=== PATIENT | male | born 1980 | race Hispanic/Latino ===

== ENCOUNTER 2020-09-07 19:05 | Emergency (ER) | payer SELFPAY ==
--- OUTSIDE RECORDS SUMMARY | 2020-09-07 19:08 | XMS REPORT | Clinical Summary ---
:1980 Author Organization [facility] Address [address] [place] [address] Care Team Providers Name Role Phone [facility] Primary Care Provider Allergies No Known Allergies Medications Medication Sig Dispensed Refills Start Date End Date Status traMADol (ULTRAM) 50 Take 50 mg by 0 Active mg tablet mouth every 6 (six) hours as needed for Pain. Active Problems Problem Noted Date Abdominal distension 02/27/2017 Secondary hypertension 02/27/2017 Acute post-operative pain 02/27/2017 Essential hypertension 02/27/2017 Post-procedural fever 02/26/2017 Tobacco use 02/25/2017 Homelessness 02/25/2017 Leukocytosis 02/25/2017 STEMI (ST elevation myocardial infarction) 02/22/2017 S/P CABG x 3 Family History Medical History Relation Name Comments No Known Problem Father Seizures Mother Relation Name Status Comments Father Mother Social History Tobacco Use Types Packs/Day Years Used Date Former Smoker 1 8 Quit: 02/20/20 17 Tobacco Cessation: Ready to Quit: No Alcohol Use Drinks/Week oz/Week Comments No Sex Assigned at Date Recorded Not on file Last Filed Vital Signs Not on file Plan of Treatment Not on file Results Not on fileafter 09/07/2019 Advance Directives For more information, please contact: [phone] Code Status Date Activated Date Inactivated Comments Full Code 02/26/2017 2:00 PM 03/02/2017 9:14 PM This code status was determined by: Patient Full Code 02/22/2017 4:59 AM 02/26/2017 2:00 PM This code status was determined by: Patient Full Code 02/22/2017 4:41 AM 02/22/2017 4:59 AM This code status was determined by: Patient
--- OUTSIDE RECORDS SUMMARY | 2020-09-07 19:08 | XMS REPORT | Continuity of Care Document ---
:1980 Author Organization [facility] Care Team Providers Name Role Phone [facility] Unavailable Un available Problems Problem Status Onset Classification Date Comments Sourc e Date Reported HOSPITAL Active [facility] FOLLWO UP 6 Medical Center Discharge 08/01/2016 [facility] Diagnosis: 6 Medical Abscess, Center dental FACIAL Active [facility] SWELLLING [address] [place] [address] Center Medications Medication Details Route Status Patient Ordering Order Source Instructions Provider Date Acetaminophen 1 tab, Inactive [facility] 325 MG / Route: PO, 016 Medical Hydrocodone Drug Form: Center Bitartrate 5 MG TAB, Dosing Oral Tablet Weight [Aristes 5/325] 84.091, kg, ONCE, STAT, Start date: 07/29/16 5:06:00 SERVICE DESK MANAGER, Stop date: 07/29/16 5:06:00 SERVICE DESK MANAGER Amoxicillin 875 875 mg = 1 Active [place] / Clavulanate tab, PO, 016 Medica l 125 MG Oral BID, X 10 Center Tablet day, # 20 [Augmentin tab, 0 875-mg] Refill(s) chlorhexidine 0.018 gm = [place] gluconate 1.2 15 mL, PO, 016 Medical MG/ML Mouthwash BID, swish Cente r [Peridex] and spit; do not swallow, # 420 mL, 0 Refill(s) Morphine Notes: (Same Inactive [facility] as:MORPhine 016 Medical Sulfate) Center Unasyn Notes: No Longer [facility] Dosing based Active 016 Medical on Center Ampicillin component (Same as: Unasyn) Sodium Chloride 1,000 mL, No Longer [place] 0.154 MEQ/ML 1,000 ml/hr, Active 016 Medica l Injectable Infuse Over: Center Solution 1 hr, Route: IV, 1,000, Drug form: INJ, ONCE, Priority: STAT, Dosing Weight 84.091 kg, Start date: 07/28/16 23:47:00 SERVICE DESK MANAGER, Duration: 1 doses or times, Stop date: 07/28/16 23:47:00 SERVICE DESK MANAGER Zofran Notes: (Same No Longer [facility] as: Zofran) Active 016 Medical Center MEDICATION WASTE Product Size: 4 mg Product Wasted: ___ mg Morphine Notes: (Same No Longer [facility] as:MORPhine Active 016 Medical Sulfate) Center Allergies, Adverse Reactions, Alerts No Known Medication Allergies Immunizations No Data Provided for This Section Results Order Name Results Value Reference Date Interpretation Comments Dori rce Range CHEM PANEL Magnesium Lvl 2.1 1.8 - 2.4 [place] 2015 [facility] CHEM PANEL eGFR 103 [facility] 2015 Comment: The Medical eGFR is Center calculated using the CKD-EPI formula. In most young, healthy individuals the eGFR will be >90 mL/min/1.73m2 . The eGFR declines with age. An eGFR of 60-89 may be normal in some populations, particularly the elderly, for whom the CKD-EPI formula has not been extensively validated. Use of the eGFR is not recommended in the following populations:< br/>
Samanta viduals with unstable creatinine concentration s, including patients and those with serious co-morbid conditions.<b r/>
Patie nts with extremes in muscle mass or diet.

The data above are obtained from the National Kidney Disease Education Program (NKDEP) which additionally recommends that when the eGFR is used in patients with extremes of body mass index for purposes of drug dosing, the eGFR should be multiplied by the estimated BMI. CHEM PANEL Chloride Lvl 99 95 - 109 [place] 2015 [facility] CHEM PANEL CO2 25 24 - 32 [facility] 2015 [facility] CHEM PANEL Calcium Lvl 8.6 8.5 - 10.5 [place] [address] [place] [address] CHEM PANEL BUN 9 7 - [address] CHEM PANEL Creatinine 0.94 0.50 - 1.40 [place] L[place] 2015 [facility] CHEM PANEL Sodium Lvl 137 135 - 145 [facility] 2015 [facility] CHEM PANEL Potassium Lvl 3.1 3.5 - 5.1 2015 [facility] CHEM PANEL Glucose Lvl 131 70 - 99 [facility] 2015 [facility] CHEM PANEL AGAP 16.1 10.0 - 20.0 [place] 2015 [facility] HEMATOLOGY Monocytes 13.5 2.0 - 12.0 [place] 2015 [facility] HEMATOLOGY Segs 68.9 45.0 - 75.0 [place] 2015 [facility] HEMATOLOGY Lymphocytes 15.6 20.0 - 40.0 [place] 2015 [facility] HEMATOLOGY Eosinophils 1.5 0.0 - 4.0 [facility] 2015 [facility] HEMATOLOGY Basophils 0.5 0.0 - 1.0 [place] 2015 [facility] HEMATOLOGY Monocytes # 1.3 0.0 - 0.8 [place] 2015 [facility] HEMATOLOGY Eosinophils # 0.1 0.0 - 0.5 [facility] 2015 [facility] HEMATOLOGY Segs-Bands # 6.8 1.5 - 8.1 2015 [facility] HEMATOLOGY Lymphocytes # 1.5 1.0 - 5.[address] [facility] HEMATOLOGY Basophils # 0.1 0.0 - 0.2 [facility] 2015 [facility] HEMATOLOGY INR 1.03 0.85 - 1.17 [place] 2015 [facility] HEMATOLOGY PT 13.7 12.0 - 14.7 [place] 2015 [facility] HEMATOLOGY PTT 31.5 22.9 - 35.8 [place] 2015 [facility] HEMATOLOGY RDW 13.1 11.5 - 14.5 [place] 2015 [facility] HEMATOLOGY MCHC 36.3 32.0 - 36.0 [facility] 2015 [facility] HEMATOLOGY Platelet 224 133 - 450 [place] 2015 [facility] HEMATOLOGY MPV 6.7 7.4 - 10.4 [facility] 2015 [facility] HEMATOLOGY Hct 39.9 42.0 - 54.0 [place] 2015 [facility] HEMATOLOGY WBC 9.8 3.7 - 10.4 [facility] 2015 [facility] HEMATOLOGY RBC 4.70 4.70 - 6.10 [facility] 2015 [facility] HEMATOLOGY Hgb 14.5 14.0 - 18.[address] HEMATOLOGY MCH 30.8 27.0 - 31.0 07/[address] HEMATOLOGY MCV 84.8 80.0 - 94.[address] Pathology Reports No Data Provided for This Section Diagnostic Reports Report Value Date Source Facial bone w EXAM: CT FACIAL BONES WITH CONTRAST 07/29/2016 [facility] contrast CT DATE: 07/29/2016 Center INDICATION: Pain and swelling COMPARISON: None available TECHNIQUE: Axial post contrast CT image s of the facial bones, with coronal and sagittal reformats. IV contrast: 94 cc Omnipaque DLP: 626 mGy-cm FINDINGS: Periapical lucency surroundi ng the left maxillary lateral incisor is identified. Anterior to this region there is a soft tissue low attenuating collection measuring 1.7 cm in maximum dimension, consiste nt with a small abscess. Adj acent soft tissue swelling and stranding of the fat, consistent with cellulitis is demonstrated. The left platysma muscle is thickened as compared to the right. There are harish ctive lymph nodes in the submandibular region, p redominantly on the left. Periapical lucency is identi fied near the left lateral mandibular incisor. Numerous cavities in the maxillary and mandibular teeth are identified. The parotid and submandibula r glands are unremarkable. The airway is normal. Vascular structures enhance in a normal fashion. IMPRESSION: A small odontogenic abscess in the left maxillary region adjacent to a periapical lucency of the left maxillary lateral incisor. There is cellulitis in the vicinity. Teeth Complete Full EXAM: XR PANOREX 07/28/2016 [facility] dical Mouth DX DATE: 07/28/2016 6:17 PM SERVICE DESK MANAGER Samantha ter INDICATION: Periapical abscess COMPARISON: None TECHNIQUE: A single Panorex view of the jaw. FINDINGS: Evaluation of midline struct ures is limited by tomographic artifact. There is no mandibular fracture. The temporomandibular joints are well aligned. Multiple teeth are absent, i ncluding tooth #1, 2, 4, 15, 16, 17, 20, 29, 31, 32. Multiple dental caries are present. Dental fillings are visualized. There is periapical lucency surrounding the right man dibular first molar and also to a lesser degree subjacent to the posterior second molar of right mandible. Very small periapical lucency is present at the canine of the left maxilla. IMPRESSION: 1. Periapical lucency surro unding the right mandibular first molar and second molar as well as canine of left maxilla which in the appropriate clinical setting may represent dental abscess. 2. Poor dentition with mult iple absent teeth and several dental caries. Recommend dental exam and dental films when feasible. Consultation Notes No Data Provided for This Section Discharge Summaries No Data Provided for This Section History and Physicals No Data Provided for This Section Vital Signs Vital Sign Value Date Comments Source Temperature Oral (F) 98.1 F 07/29/2016 [facility] Heart Rate 82 07/29[facility] Systolic (mm Hg) 140 07/29/2016 [facility] Diastolic (mm Hg) 78 07/29/2016 [facility] Respitory Rate 16 07/29/2016 [facility] Heart Rate 83 07/29/2016 [facility] Systolic (mm Hg) 168 07/29/2016 [facility] Diastolic (mm Hg) 92 07/29/2016 [facility] Height 175.26 cm 07/29/2016 [facility] BMI Calculated 27.38 07/29/2016 [facility] Weight 84.091 07/29/2016 [facility] Heart Rate 87 07/29/2016 [facility] Respitory Rate 18 07/29/2016 [facility] Systolic (mm Hg) 135 07/29/2016 [facility] Diastolic (mm Hg) 78 07/29/2016 [facility] Temperature Oral (F) 98.1 F 07/29/2016 [facility] Encounters Location Location Encounter Encounter Reason Attending ADM DC Stat us Source Details Type Number For Provider Date Date Visit [facility] [id number] Jeremie 07/29 07/29 [facility] Mike /2015 [facility] [id number] Cornell 08/06 09/05 [facility] Carter /2016 [facility] Procedures No Data Provided for This Section Assessment and Plan No Data Provided for This Section Plan of Care No Data Provided for This Section Social History Social History Date Source Social History TypeResponse 07/29/2016 [facility] Smoking Status Never smoker; Exposure to Tobacco Smoke None; Cigarette Smoking Last 365 Days No; Reg Smoking Cessation Counseling No Family History No Data Provided for This Section Advance Directives No Data Provided for This Section Functional Status No Data Provided for This Section
--- OUTSIDE RECORDS SUMMARY | 2020-09-07 19:11 | XMS REPORT | Continuity of Care Document ---
:1980 Author Organization [facility] t Address 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 02-27 Roselyn kes - on on 00:00: Medical 00 [place] Acute Acute Disease Active [facility] post-opera post-opera 02-27 Roselyn kes - tive pain tive pain 00:00: Medi yuko 00 Center Essential Essential Disease Active [facility] hypertensi hypertensi 02-27 Roselyn kes - on on 00:00: Medical 00 [place] Post-proce Post-proce Disease Active [facility]ural [facility]ural [facility]26 [facility] fever fever 00:00: Medical 00 [place] Tobacco Tobacco Disease Active [facility] use use 02-25 [facility] - 00:[facility]: Medical 00 [place] Homelessne Homelessne Disease Active [facility] ss ss 02-25 [facility] - 00:[facility]: Medical 00 Center Leukocytos Leukocytos Disease Active [facility] is is 02-25 [facility] - 00:00: Medical 00 Center STEMI (ST STEMI (ST Disease Active [facility] St elevation elevation 02-22 [place] - myocardial myocardial 00:00: Me dical infarction infarction 00 Ce nter ) ) HOSPITAL Diagnosis Active 2015-082016-08-06 M amna FOLLWO UP 10:35:00 l HOSPITAL 00:00: Oswaldo diaz FOLLWO UP 00 Active 07/31/2016 [facility] FACIAL Diagnosis Active 2015-082016-07-28 Mem oria SWELLLING 09-28 23:51:00 l FACIAL 00:00: [place] SWELLLING 00 Active 07/28/2016 [facility] S/P CABG x S/P CABG x Disease Active [facility] 3 3 [facility] Discharge Problem 2015-082016-08-01 2016-08-01 Memoria Diagnosis: 09-29 04:07:14 04:07:14 l Abscess, 06:00: [place] dental Discharge 00 Diagnosis: Abscess, dental 07/29/2016 08/01/2016 [facility] Allergies, Adverse Reactions, Alerts This patient has no known allergies or adverse reactions. Family History Family Member Diagnosis Comments Start Date Stop Date Source Natural father No Known Problem [facility] Natural mother Seizures [facility] Social History Social Habit Start Date Stop Date Quantity Comments Source Sex Assigned At [facility] Cigarettes smoked 2017-03-22 2017-03-22 [facility] - current (pack per 00:00:00 00:00:00 [facility] day) - Reported Cigarette 2017-03-22 2017-03-22 [facility] - pack-years 00:00:00 00:00:00 [facility] Alcohol intake 2017-03-22 2017-03-22 Current [facility] - 00:00:00 00:00:00 non-drinker of Medical Ce nter alcohol (finding) History of tobacco 2017-02-19 Current smoker Alexi Riojas - use 00:00:00 [facility] Smoking Status Start Date Stop Date Source Former smoker 2017-03-22 00:00:00 2017-03-22 00:00:00 [facility] Social History [facility] Medications Ordered Filled Start Stop Current Ordering Indication Dosage Frequency Signature Comments Components Source Medication Medication Date Date Medication? Clinician (SIG) Name Name traMADol Yes 50mg Take [address] [facility] [address] (ULTRAM) 50 8-21 by mouth Luke s - mg tablet 11:00: every 6 Medic al 56 (six) Center hours as needed for Pain. Acetaminoph 2015-08 No 1 tab, Raudel shakir en 325 MG / 09-29 Route: PO, l Hydrocodone 11:06: Drug Form: [place] Bitartrate 00 TAB, 5 MG Oral Dosing Tablet Weight [[place] 84.091, 5/325] kg, ONCE, STAT, Start date: 07/29/16 5:06:00 HSE COORDINATOR, Stop date: 07/29/16 5:06:00 HSE COORDINATOR Amoxicillin 2015-08 Yes 875 mg = 1 [facility] 875 MG / 09-29 tab, PO, l Clavulanate 10:52: BID, X 10 H ermann 125 MG Oral 00 day, # 20 Tablet tab, 0 [Augmentin Refill(s) 875-mg] chlorhexidi 2015-08 Yes 0.018 gm = Memoria ne - 15 mL, PO, l gluconate 10:52: BID, swish He rmann 1.2 MG/ML 00 and spit; Mouthwash do not [Peridex] swallow, # 420 mL, 0 Refill(s) Morphine 2015-08 Yes Notes: Memoria 2-28 (Same l 10:01: as:MORPhin Reinier 00 e Sulfate) Unasyn 2015-08 No Notes: [facility] 2-28 Dosing l 05:49: based on [place] 00 Ampicillin component (Same as: Unasyn) Sodium 2015-08 No 1,000 mL, Memori a Chloride - 1,000 l 0.154 05:47: ml/hr, [place] MEQ/ML 00 Infuse Injectable Over: 1 Solution hr, Route: IV, 1,000, Drug form: INJ, ONCE, Priority: STAT, Dosing Weight 84.091 kg, Start date: 07/28/16 23:47:00 HSE COORDINATOR, Duration: 1 doses or times, Stop date: 07/28/16 23:47:00 HSE COORDINATOR Zofran 2015-08 No Notes: [facility]oria 2-28 (Same as: l 05:47: Zofran) [place] 00 MEDICATION WASTE Product Size: 4 mg Product Wasted: ___ mg Morphine 2015-08 No Notes: [facility]oria 09-29 (Same l 05:47: as:MORPhin [place] 00 e Sulfate) Vital Signs Vital Name Observation Time Observation Value Comments Source Temperature Oral (F) 2016-07-29 11:16:00 98.1 F [facility] [place] Heart Rate 2016-07-29 11:16:00 [facility] Systolic (mm Hg) 2016-07-29 11:16:00 Raudel rial [place] Diastolic (mm Hg) 2016-07-29 11:16:00 Mem [facility] [place] Respitory Rate 2016-07-29 06:24:00 [facility] [place] Heart Rate 2016-07-29 06:24:00 [facility] [place] Systolic (mm Hg) 2016-07-29 06:24:00 Raudel rial [place] Diastolic (mm Hg) 2016-07-29 06:24:00 Mem orial [place] Height 2016-07-29 00:13:00 175.26 cm [facility] [place] BMI Calculated 2016-07-29 00:13:00 [facility] [place] Weight 2016-07-29 00:13:00 [facility] Heart Rate 2016-07-29 00:13:00 [facility] [place] Respitory Rate 2016-07-29 00:13:00 [facility] [place] Systolic (mm Hg) 2016-07-29 00:13:00 Raudel rial [place] Diastolic (mm Hg) 2016-07-29 00:13:00 Mem orial [place] Temperature Oral (F) 2016-07-29 00:13:00 98.1 F [facility] Procedures This patient has no known procedures. Encounters Start End Encounter Admission Attending Care Care Encounter Source Date/Time Date/Time Type Type Clinicians Facility Department ID 2016-08-06 2016-09-04 Outpatient Carter [facility] [id number] 10:26:00 23:59:00 [facility] 00 Miguel 2016-07-28 2016-07-29 Outpatient Mike [facility] [id number] 675 18:02:00 05:18:00 Jeremie 00 Joanlia Results Test Description Test Time Test Comments Results Result Comments Source MAGNESIUM 2017-03-02 06:15:00 Test Item Value Reference Range Interpretation Comme nts MAGNESIUM (BEAKER) (test code = 627) 2.0 mg/dL 1.6-2.6 BASIC METABOLIC [id number] 06:15:00 Test Item Value Reference Range Interpretation Comments SODIUM (BEAKER) 138 meq/L 136-145 (test code = 381) POTASSIUM (BEAKER) 3.9 meq/L 3.5-5.1 (test code = 379) CHLORIDE (BEAKER) 102 meq/L 98-107 (test code = 382) CO2 (BEAKER) (test 25 meq/L 22-29 code = 355) BLOOD UREA NITROGEN 13 mg/dL 7-21 (BEAKER) (test code = 354) CREATININE (BEAKER) 0.83 mg/dL 0.57-1.25 (test code = 358) GLUCOSE RANDOM 100 mg/dL 70-105 (BEAKER) (test code = 652) CALCIUM (BEAKER) 9.1 mg/dL 8.4-10.2 (test code = 697) EGFR (BEAKER) (test 104 mL/min/1.73 ESTIM ATED GFR IS code = 1092) sq m NOT ACCURATE CREATININE CLEARANCE IN PREDICTING GLOMERULAR FILTRATION RATE . ESTIMATED GFR I S NOT APPLICABLE FOR DIALYSIS PATIEN TS. CBC W/PLT COUNT & AUTO [id number] 05:58:00 Test Item Value Reference Range Interpretation Comments WHITE BLOOD CELL COUNT (BEAKER) 10.9 K/ L 3.5-10.5 H (test code = 775) RED BLOOD CELL COUNT (BEAKER) 4.07 M/ L 4.63-6.08 L (test code = 761) HEMOGLOBIN (BEAKER) (test code = 12.3 GM/DL 13.7-17.5 L 410) HEMATOCRIT (BEAKER) (test code = 35.4 % 40.1-51.0 L 411) MEAN CORPUSCULAR VOLUME (BEAKER) 87.0 fL 79.0-92.2 (test code = 753) MEAN CORPUSCULAR HEMOGLOBIN 30.2 pg 25.7-32.2 (BEAKER) (test code = 751) MEAN CORPUSCULAR HEMOGLOBIN CONC 34.7 GM/DL 32.3-36.5 (BEAKER) (test code = 752) RED CELL DISTRIBUTION WIDTH 13.2 % 11.6-14.4 (BEAKER) (test code = 412) PLATELET COUNT (BEAKER) (test 346 K/CU MM 150-450 code = 756) MEAN PLATELET VOLUME (BEAKER) 9.0 fL 9.4-12.4 L (test code = 754) NUCLEATED RED BLOOD CELLS 0 /100 WBC 0-0 (BEAKER) (test code = 413) NEUTROPHILS RELATIVE PERCENT 62 % (BEAKER) (test code = 429) LYMPHOCYTES RELATIVE PERCENT 20 % (BEAKER) (test code = 430) MONOCYTES RELATIVE PERCENT 12 % (BEAKER) (test code = 431) EOSINOPHILS RELATIVE PERCENT 4 % (BEAKER) (test code = 432) BASOPHILS RELATIVE PERCENT 1 % (BEAKER) (test code = 437) NEUTROPHILS ABSOLUTE COUNT 6.75 K/ L 1.78-5.38 H (BEAKER) (test code = 670) LYMPHOCYTES ABSOLUTE COUNT 2.13 K/ L 1.32-3.57 (BEAKER) (test code = 414) MONOCYTES ABSOLUTE COUNT (BEAKER) 1.32 K/ L 0.30-0.82 H (test code = 415) EOSINOPHILS ABSOLUTE COUNT 0.48 K/ L 0.04-0.54 (BEAKER) (test code = 416) BASOPHILS ABSOLUTE COUNT (BEAKER) 0.08 K/ L 0.01-0.08 (test code = 417) IMMATURE GRANULOCYTES-RELATIVE 1 % 0-1 PERCENT (BEAKER) (test code = 2801) CBC W/PLT COUNT & AUTO [id number] 07:41:00 Test Item Value Reference Range Interpretation Comments WHITE BLOOD CELL COUNT (BEAKER) 12.8 K/ L 3.5-10.5 H (test code = 775) RED BLOOD CELL COUNT (BEAKER) 3.65 M/ L 4.63-6.08 L (test code = 761) HEMOGLOBIN (BEAKER) (test code = 11.0 GM/DL 13.7-17.5 L 410) HEMATOCRIT (BEAKER) (test code = 32.2 % 40.1-51.0 L 411) MEAN CORPUSCULAR VOLUME (BEAKER) 88.2 fL 79.0-92.2 (test code = 753) MEAN CORPUSCULAR HEMOGLOBIN 30.1 pg 25.7-32.2 (BEAKER) (test code = 751) MEAN CORPUSCULAR HEMOGLOBIN CONC 34.2 GM/DL 32.3-36.5 (BEAKER) (test code = 752) RED CELL DISTRIBUTION WIDTH 13.2 % 11.6-14.4 (BEAKER) (test code = 412) PLATELET COUNT (BEAKER) (test 230 K/CU MM 150-450 code = 756) MEAN PLATELET VOLUME (BEAKER) 9.6 fL 9.4-12.4 (test code = 754) NUCLEATED RED BLOOD CELLS 0 /100 WBC 0-0 (BEAKER) (test code = 413) NEUTROPHILS RELATIVE PERCENT 69 % (BEAKER) (test code = 429) LYMPHOCYTES RELATIVE PERCENT 15 % (BEAKER) (test code = 430) MONOCYTES RELATIVE PERCENT 13 % (BEAKER) (test code = 431) EOSINOPHILS RELATIVE PERCENT 2 % (BEAKER) (test code = 432) BASOPHILS RELATIVE PERCENT 0 % (BEAKER) (test code = 437) NEUTROPHILS ABSOLUTE COUNT 8.81 K/ L 1.78-5.38 H (BEAKER) (test code = 670) LYMPHOCYTES ABSOLUTE COUNT 1.95 K/ L 1.32-3.57 (BEAKER) (test code = 414) MONOCYTES ABSOLUTE COUNT (BEAKER) 1.68 K/ L 0.30-0.82 H (test code = 415) EOSINOPHILS ABSOLUTE COUNT 0.30 K/ L 0.04-0.54 (BEAKER) (test code = 416) BASOPHILS ABSOLUTE COUNT (BEAKER) 0.04 K/ L 0.01-0.08 (test code = 417) IMMATURE GRANULOCYTES-RELATIVE 0 % 0-1 PERCENT (BEAKER) (test code = 2801) [id number] 07:35:00 Test Item Value Reference Range Interpretation Comments MAGNESIUM (BEAKER) (test code = 1.8 mg/dL 1.6-2.6 627) BASIC METABOLIC [id number] 07:35:00 Test Item Value Reference Range Interpretation Comments SODIUM (BEAKER) 137 meq/L 136-145 (test code = 381) POTASSIUM (BEAKER) 4.1 meq/L 3.5-5.1 (test code = 379) CHLORIDE (BEAKER) 104 meq/L 98-107 (test code = 382) CO2 (BEAKER) (test 26 meq/L 22-29 code = 355) BLOOD UREA NITROGEN 11 mg/dL 7-21 (BEAKER) (test code = 354) CREATININE (BEAKER) 0.76 mg/dL 0.57-1.25 (test code = 358) GLUCOSE RANDOM 104 mg/dL 70-105 (BEAKER) (test code = 652) CALCIUM (BEAKER) 8.7 mg/dL 8.4-10.2 (test code = 697) EGFR (BEAKER) (test 115 mL/min/1.73 ESTIM ATED GFR IS code = 1092) sq m NOT ACCURATE CREATININE CLEARANCE IN PREDICTING GLOMERULAR FILTRATION RATE . ESTIMATED GFR I S NOT APPLICABLE FOR DIALYSIS PATIEN TS. PLATELET AGGREGATION: FUNCTION [id number] 09:16:00 Test Item Value Reference Range Interpretation Comments WEAK ADP 57 % 60-91 L RESULT(BEAKER) (test code = 2135) PLATELET FUNCTION 50-59% indicates mild SCREEN INTERP platelet dysfunction (BEAKER) (test code = 2173) [id number] Jia Reynoso MD (BEAKER) (test code = (electronic signature) 0212) PLATELET COUNT AGG 301 K/CU MM 150-450 (BEAKER) (test code = 9650) CBC W/PLT COUNT & AUTO [id number] 08:06:00 Test Item Value Reference Range Interpretation Comments WHITE BLOOD CELL COUNT (BEAKER) 16.7 K/ L 3.5-10.5 H (test code = 775) RED BLOOD CELL COUNT (BEAKER) 3.80 M/ L 4.63-6.08 L (test code = 761) HEMOGLOBIN (BEAKER) (test code = 11.5 GM/DL 13.7-17.5 L 410) HEMATOCRIT (BEAKER) (test code = 33.1 % 40.1-51.0 L 411) MEAN CORPUSCULAR VOLUME (BEAKER) 87.1 fL 79.0-92.2 (test code = 753) MEAN CORPUSCULAR HEMOGLOBIN 30.3 pg 25.7-32.2 (BEAKER) (test code = 751) MEAN CORPUSCULAR HEMOGLOBIN CONC 34.7 GM/DL 32.3-36.5 (BEAKER) (test code = 752) RED CELL DISTRIBUTION WIDTH 13.2 % 11.6-14.4 (BEAKER) (test code = 412) PLATELET COUNT (BEAKER) (test 222 K/CU MM 150-450 code = 756) MEAN PLATELET VOLUME (BEAKER) 9.2 fL 9.4-12.4 L (test code = 754) NUCLEATED RED BLOOD CELLS 0 /100 WBC 0-0 (BEAKER) (test code = 413) NEUTROPHILS RELATIVE PERCENT 76 % (BEAKER) (test code = 429) LYMPHOCYTES RELATIVE PERCENT 9 % (BEAKER) (test code = 430) MONOCYTES RELATIVE PERCENT 13 % (BEAKER) (test code = 431) EOSINOPHILS RELATIVE PERCENT 1 % (BEAKER) (test code = 432) BASOPHILS RELATIVE PERCENT 0 % (BEAKER) (test code = 437) NEUTROPHILS ABSOLUTE COUNT 12.71 K/ L 1.78-5.38 H (BEAKER) (test code = 670) LYMPHOCYTES ABSOLUTE COUNT 1.46 K/ L 1.32-3.57 (BEAKER) (test code = 414) MONOCYTES ABSOLUTE COUNT (BEAKER) 2.10 K/ L 0.30-0.82 H (test code = 415) EOSINOPHILS ABSOLUTE COUNT 0.15 K/ L 0.04-0.54 (BEAKER) (test code = 416) BASOPHILS ABSOLUTE COUNT (BEAKER) 0.04 K/ L 0.01-0.08 (test code = 417) IMMATURE GRANULOCYTES-RELATIVE 1 % 0-1 PERCENT (BEAKER) (test code = 2801) [id number] 07:36:00 Test Item Value Reference Range Interpretation Comments MAGNESIUM (BEAKER) (test code = 1.9 mg/dL 1.6-2.6 627) BASIC METABOLIC [id number] 07:36:00 Test Item Value Reference Range Interpretation Comments SODIUM (BEAKER) 133 meq/L 136-145 L (test code = 381) POTASSIUM (BEAKER) 4.1 meq/L 3.5-5.1 (test code = 379) CHLORIDE (BEAKER) 100 meq/L 98-107 (test code = 382) CO2 (BEAKER) (test 25 meq/L 22-29 code = 355) BLOOD UREA NITROGEN 12 mg/dL 7-21 (BEAKER) (test code = 354) CREATININE (BEAKER) 0.80 mg/dL 0.57-1.25 (test code = 358) GLUCOSE RANDOM 107 mg/dL 70-105 H (BEAKER) (test code = 652) CALCIUM (BEAKER) 8.7 mg/dL 8.4-10.2 (test code = 697) EGFR (BEAKER) (test 108 mL/min/1.73 ESTIM ATED GFR IS code = 1092) sq m NOT ACCURATE CREATININE CLEARANCE IN PREDICTING GLOMERULAR FILTRATION RATE . ESTIMATED GFR I S NOT APPLICABLE FOR DIALYSIS PATIEN TS. CBC W/PLT COUNT & AUTO [id number] 05:47:00 Test Item Value Reference Range Interpretation Comments WHITE BLOOD CELL COUNT (BEAKER) 10.9 K/ L 3.5-10.5 H (test code = 775) RED BLOOD CELL COUNT (BEAKER) 4.00 M/ L 4.63-6.08 L (test code = 761) HEMOGLOBIN (BEAKER) (test code = 12.1 GM/DL 13.7-17.5 L 410) HEMATOCRIT (BEAKER) (test code = 35.1 % 40.1-51.0 L 411) MEAN CORPUSCULAR VOLUME (BEAKER) 87.8 fL 79.0-92.2 (test code = 753) MEAN CORPUSCULAR HEMOGLOBIN 30.3 pg 25.7-32.2 (BEAKER) (test code = 751) MEAN CORPUSCULAR HEMOGLOBIN CONC 34.5 GM/DL 32.3-36.5 (BEAKER) (test code = 752) RED CELL DISTRIBUTION WIDTH 13.3 % 11.6-14.4 (BEAKER) (test code = 412) PLATELET COUNT (BEAKER) (test 205 K/CU MM 150-450 code = 756) MEAN PLATELET VOLUME (BEAKER) 8.9 fL 9.4-12.4 L (test code = 754) NUCLEATED RED BLOOD CELLS 0 /100 WBC 0-0 (BEAKER) (test code = 413) NEUTROPHILS RELATIVE PERCENT 78 % (BEAKER) (test code = 429) LYMPHOCYTES RELATIVE PERCENT 8 % (BEAKER) (test code = 430) MONOCYTES RELATIVE PERCENT 12 % (BEAKER) (test code = 431) EOSINOPHILS RELATIVE PERCENT 1 % (BEAKER) (test code = 432) BASOPHILS RELATIVE PERCENT 0 % (BEAKER) (test code = 437) NEUTROPHILS ABSOLUTE COUNT 8.46 K/ L 1.78-5.38 H (BEAKER) (test code = 670) LYMPHOCYTES ABSOLUTE COUNT 0.91 K/ L 1.32-3.57 L (BEAKER) (test code = 414) MONOCYTES ABSOLUTE COUNT (BEAKER) 1.35 K/ L 0.30-0.82 H (test code = 415) EOSINOPHILS ABSOLUTE COUNT 0.05 K/ L 0.04-0.54 (BEAKER) (test code = 416) BASOPHILS ABSOLUTE COUNT (BEAKER) 0.04 K/ L 0.01-0.08 (test code = 417) IMMATURE GRANULOCYTES-RELATIVE 1 % 0-1 PERCENT (BEAKER) (test code = 2801) [id number] 05:01:00 Test Item Value Reference Range Interpretation Comments MAGNESIUM (BEAKER) (test code = 2.0 mg/dL 1.6-2.6 627) BASIC METABOLIC [id number] 05:01:00 Test Item Value Reference Range Interpretation Comments SODIUM (BEAKER) 134 meq/L 136-145 L (test code = 381) POTASSIUM (BEAKER) 4.3 meq/L 3.5-5.1 (test code = 379) CHLORIDE (BEAKER) 103 meq/L 98-107 (test code = 382) CO2 (BEAKER) (test 23 meq/L 22-29 code = 355) BLOOD UREA NITROGEN 11 mg/dL 7-21 (BEAKER) (test code = 354) CREATININE (BEAKER) 0.87 mg/dL 0.57-1.25 (test code = 358) GLUCOSE RANDOM 128 mg/dL 70-105 H (BEAKER) (test code = 652) CALCIUM (BEAKER) 8.5 mg/dL 8.4-10.2 (test code = 697) EGFR (BEAKER) (test 98 mL/min/1.73 ESTIMA BONNIE GFR IS code = 1092) sq m NOT ACCURATE CREATININE CLEARANCE IN PREDICTING GLOMERULAR FILTRATION RATE . ESTIMATED GFR I S NOT APPLICABLE FOR DIALYSIS PATIEN TS. OXYGEN SATURATION, [id number] 04:41:00 Test Item Value Reference Range Interpretation Comments O2 SATURATION (MEASURED) (BEAKER) 62.3 % (test code = 1455) CALCIUM, [id number] 04:40:00 Test Item Value Reference Range Interpretation Comments CALCIUM IONIZED (BEAKER) (test 1.14 mmol/L 1.12-1.27 code = 698) PH, BLOOD (BEAKER) (test code = 7.43 1810) POCT-GLUCOSE [id number] 04:27:00 Test Item Value Reference Range Interpretation Comments POC-GLUCOSE METER 130 mg/dL 70-110 H TESTED AT [facility] 6720 (BEAKER) (test code = AYAH NAYLOR 1538) 106[address] [id number] 20:09:00 Test Item Value Reference Range Interpretation Comments POTASSIUM (BEAKER) (test code = 4.7 meq/L 3.5-5.1 379) Check Serum Potassium level 2 hours after oral potassium replacement completed or 30 min after intravenous potassium replacement.[id number] 20:09:00 Test Item Value Reference Range Interpretation Comments MAGNESIUM (BEAKER) (test code = 2.3 mg/dL 1.6-2.6 627) Check Serum Potassium level 2 hours after oral potassium replacement completed or 30 min after intravenous potassium replacement.POTASSIUM-STAT [id number] 17:30:00 Test Item Value Reference Range Interpretation Comments POTASSIUM (BEAKER) (test code = 4.0 meq/L 3.6-5.5 379) GLUCOSE-STAT [id number] 17:30:00 Test Item Value Reference Range Interpretation Comments GLUCOSE RANDOM (BEAKER) (test code 114 mg/dL 70-110 H = 652) BLOOD GAS, [id number] 17:30:00 Test Item Value Reference Range Interpretation Comments PH ARTERIAL (BEAKER) (test code = 7.34 7.35-7.45 L 383) PCO2 ARTERIAL (BEAKER) (test code 44 mmHg 35-45 = 384) PO2 ARTERIAL (BEAKER) (test code 196 mmHg 80-90 H = 385) O2 SATURATION ARTERIAL (BEAKER) 99.3 % 96.0-97.0 H (test code = 386) HCO3 ARTERIAL (BEAKER) (test code 23 mmol/L 21-29 = 388) BASE EXCESS ARTERIAL (BEAKER) -2.9 mmol/L -2.0-3.0 L (test code = 387) PATIENT TEMPERATURE (BEAKER) 37.4 C (test code = 1818) FIO2 (BEAKER) (test code = 1819) 60.0 % CBC W/PLT COUNT & AUTO [id number] 16:11:00 Test Item Value Reference Range Interpretation Comments WHITE BLOOD CELL COUNT (BEAKER) 15.8 K/ L 3.5-10.5 H (test code = 775) RED BLOOD CELL COUNT (BEAKER) 3.96 M/ L 4.63-6.08 L (test code = 761) HEMOGLOBIN (BEAKER) (test code = 12.1 GM/DL 13.7-17.5 L 410) HEMATOCRIT (BEAKER) (test code = 34.5 % 40.1-51.0 L 411) MEAN CORPUSCULAR VOLUME (BEAKER) 87.1 fL 79.0-92.2 (test code = 753) MEAN CORPUSCULAR HEMOGLOBIN 30.6 pg 25.7-32.2 (BEAKER) (test code = 751) MEAN CORPUSCULAR HEMOGLOBIN CONC 35.1 GM/DL 32.3-36.5 (BEAKER) (test code = 752) RED CELL DISTRIBUTION WIDTH 13.2 % 11.6-14.4 (BEAKER) (test code = 412) PLATELET COUNT (BEAKER) (test 211 K/CU MM 150-450 code = 756) MEAN PLATELET VOLUME (BEAKER) 8.8 fL 9.4-12.4 L (test code = 754) NUCLEATED RED BLOOD CELLS 0 /100 WBC 0-0 (BEAKER) (test code = 413) NEUTROPHILS RELATIVE PERCENT 69 % (BEAKER) (test code = 429) LYMPHOCYTES RELATIVE PERCENT 17 % (BEAKER) (test code = 430) MONOCYTES RELATIVE PERCENT 10 % (BEAKER) (test code = 431) EOSINOPHILS RELATIVE PERCENT 3 % (BEAKER) (test code = 432) BASOPHILS RELATIVE PERCENT 0 % (BEAKER) (test code = 437) NEUTROPHILS ABSOLUTE COUNT 10.85 K/ L 1.78-5.38 H (BEAKER) (test code = 670) LYMPHOCYTES ABSOLUTE COUNT 2.67 K/ L 1.32-3.57 (BEAKER) (test code = 414) MONOCYTES ABSOLUTE COUNT (BEAKER) 1.60 K/ L 0.30-0.82 H (test code = 415) EOSINOPHILS ABSOLUTE COUNT 0.42 K/ L 0.04-0.54 (BEAKER) (test code = 416) BASOPHILS ABSOLUTE COUNT (BEAKER) 0.06 K/ L 0.01-0.08 (test code = 417) IMMATURE GRANULOCYTES-RELATIVE 1 % 0-1 PERCENT (BEAKER) (test code = 2801) [id number] 16:03:00 Test Item Value Reference Range Interpretation Comments FIBRINOGEN LEVEL (BEAKER) (test 214 mg/dl 225-434 L code = 658) LACTATE DEHYDROGENASE (LDH)[id number] 15:20:00 Test Item Value Reference Range Interpretation Comments LACTATE DEHYDROGENASE 474 U/L 125-220 H Specim en slightly (BEAKER) (test code = hemoly zed 635) BASIC METABOLIC [id number] 15:20:00 Test Item Value Reference Range Interpretation Comments SODIUM (BEAKER) 142 meq/L 136-145 (test code = 381) POTASSIUM (BEAKER) 4.2 meq/L 3.5-5.1 Specimen slightly (test code = 379) hemolyzed CHLORIDE (BEAKER) 112 meq/L 98-107 H (test code = 382) CO2 (BEAKER) (test 23 meq/L 22-29 code = 355) BLOOD UREA NITROGEN 11 mg/dL 7-21 (BEAKER) (test code = 354) CREATININE (BEAKER) 0.92 mg/dL 0.57-1.25 Specimen slightly (test code = 358) hemolyzed GLUCOSE RANDOM 107 mg/dL 70-105 H (BEAKER) (test code = 652) CALCIUM (BEAKER) 7.9 mg/dL 8.4-10.2 L (test code = 697) EGFR (BEAKER) (test 92 mL/min/1.73 ESTIMA BONNIE GFR IS code = 1092) sq m NOT ACCURATE CREATININE CLEARANCE IN PREDICTING GLOMERULAR FILTRATION RATE . ESTIMATED GFR I S NOT APPLICABLE FOR DIALYSIS PATIEN TS. [id number] 15:17:00 Test Item Value Reference Range Interpretation Comments MAGNESIUM (BEAKER) 1.8 mg/dL 1.6-2.6 Specimen slightly (test code = 627) hemolyzed [id number] 15:17:00 Test Item Value Reference Range Interpretation Comments PHOSPHORUS (BEAKER) 3.0 mg/dL 2.3-4.7 Specimen slightly (test code = 604) hemolyzed HEPATIC FUNCTION [id number] 15:17:00 Test Item Value Reference Range Interpretation Comments TOTAL PROTEIN (BEAKER) 5.9 gm/dL 6.0-8.3 L Speci men slightly (test code = 770) hemolyzed ALBUMIN (BEAKER) (test 3.9 g/dL 3.5-5.0 Speci men slightly code = 1145) hemolyzed BILIRUBIN TOTAL 0.6 mg/dL 0.2-1.2 Specimen sli ghtly (BEAKER) (test code = hemoly zed 377) BILIRUBIN DIRECT 0.2 mg/dL 0.1-0.5 Specimen sl ightly (BEAKER) (test code = hemoly zed 706) ALKALINE PHOSPHATASE 49 U/L 40-150 (BEAKER) (test code = 346) AST (SGOT) (BEAKER) 67 U/L 5-34 H Specimen slightly (test code = 353) hemolyzed ALT (SGPT) (BEAKER) 64 U/L 6-55 H Specimen slightly (test code = 347) hemolyzed LACTIC ACID, ARTERIAL, WHOLE [id number] 15:14:00 Test Item Value Reference Range Interpretation Comments LACTATE BLOOD 2.2 mmol/L 0.5-2.2 Specimen sligh tly ARTERIAL (2) (BEAKER) hemoly zed (test code = 2874) Effective 12/04/2015: Units/Reference Range ChangeNew: 0.5-2.2 mmol/L Previous: 5-20 mg/[id number] 15:10:00 Test Item Value Reference Range Interpretation Comments PARTIAL THROMBOPLASTIN TIME 28.8 seconds 22.5-36.0 (BEAKER) (test code = 760) PROTHROMBIN [id number] 15:09:00 Test Item Value Reference Range Interpretation Comments PROTIME (BEAKER) (test code = 16.3 seconds 11.7-14.7 H 759) INR (BEAKER) (test code = 370) 1.3 <=5.9 RECOMMENDED COUMADIN/WARFARIN INR THERAPY RANGESSTANDARD DOSE: 2.0 - 3.0 Includes: PROPHYLAXIS forvenous thrombosis, systemic embolization; TREATMENT for venous thrombosis and/or pulmonary embolus.HIGH RISK: Target INR is 2.5-3.5 for patients with mechanical heart valves.GLUCOSE-STAT [id number] 14:52:00 Test Item Value Reference Range Interpretation Comments GLUCOSE RANDOM (BEAKER) (test code 105 mg/dL 70-110 = 652) SODIUM NA-STAT [id number] 14:52:00 Test Item Value Reference Range Interpretation Comments SODIUM (BEAKER) (test code = 381) 139 meq/L 135-148 POTASSIUM-STAT [id number] 14:52:00 Test Item Value Reference Range Interpretation Comments POTASSIUM (BEAKER) (test code = 4.0 meq/L 3.6-5.5 379) BLOOD GAS, [id number] 14:52:00 Test Item Value Reference Range Interpretation Comments PH ARTERIAL (BEAKER) (test code = 7.39 7.35-7.45 383) PCO2 ARTERIAL (BEAKER) (test code 39 mmHg 35-45 = 384) PO2 ARTERIAL (BEAKER) (test code 155 mmHg 80-90 H = 385) O2 SATURATION ARTERIAL (BEAKER) 99.0 % 96.0-97.0 H (test code = 386) HCO3 ARTERIAL (BEAKER) (test code 23 mmol/L 21-29 = 388) BASE EXCESS ARTERIAL (BEAKER) -1.9 mmol/L -2.0-3.0 (test code = 387) PATIENT TEMPERATURE (BEAKER) 35.5 C (test code = 1818) FIO2 (BEAKER) (test code = 1819) 60.0 % HEMOGLOBIN-STAT [id number] 14:52:00 Test Item Value Reference Range Interpretation Comments HEMOGLOBIN (BEAKER) (test code = 12.2 g/dL 13.0-16.8 L 410) HGB/HCT (H&H) - STAT [id number] 14:52:00 Test Item Value Reference Range Interpretation Comments HEMOGLOBIN (BEAKER) (test code = 12.2 GM/DL 13.0-16.8 L 410) HEMATOCRIT (BEAKER) (test code = 36.0 % 40.0-50.0 L 411) CALCIUM, [id number] 14:52:00 Test Item Value Reference Range Interpretation Comments CALCIUM IONIZED (BEAKER) (test 1.09 mmol/L 1.12-1.27 L code = 698) PH, BLOOD (BEAKER) (test code = 7.39 1810) OXYGEN SATURATION, [id number] 14:50:00 Test Item Value Reference Range Interpretation Comments O2 SATURATION (MEASURED) (BEAKER) 80.0 % (test code = 1455) [id number] 14:12:00 Test Item Value Reference Range Interpretation Comments ACTIVATED CLOTTING TIME 109 sec TEST ED AT [place] [address] ([facility]) (test code = [place] [address]) [id number] 14:12:00 Test Item Value Reference Range Interpretation Comments ACTIVATED CLOTTING TIME 400 sec TEST ED AT [place] [address] ([facility]) (test code = [place] [address]) [id number] 14:12:00 Test Item Value Reference Range Interpretation Comments ACTIVATED CLOTTING TIME 450 sec TEST ED AT [place] [address] ([facility]) (test code = [place] [address]) [address] [id number] 14:12:00 Test Item Value Reference Range Interpretation Comments ACTIVATED CLOTTING TIME 455 sec TEST ED AT [place] [address] ([facility]) (test code = [place] [address]) [address] [id number] 14:11:00 Test Item Value Reference Range Interpretation Comments ACTIVATED CLOTTING TIME 466 sec TEST ED AT [place] [address] ([facility]) (test code = [place] [address]) [address] [id number] 14:11:00 Test Item Value Reference Range Interpretation Comments ACTIVATED CLOTTING TIME 422 sec TEST ED AT [place] [address] ([facility]) (test code = [place] [address]) [id number] 14:11:00 Test Item Value Reference Range Interpretation Comments ACTIVATED CLOTTING TIME 373 sec TEST ED AT [place] [address] ([facility]) (test code = [place] [address]) [id number] BLOOD GAS, [id number] 12:55:00 Test Item Value Reference Range Interpretation Comments PH ARTERIAL (BEAKER) (test code = 7.35 7.35-7.45 383) PCO2 ARTERIAL (BEAKER) (test code 39 mmHg 35-45 = 384) PO2 ARTERIAL (BEAKER) (test code 184 mmHg 80-90 H = 385) O2 SATURATION ARTERIAL (BEAKER) 99.2 % 96.0-97.0 H (test code = 386) HCO3 ARTERIAL (BEAKER) (test code 21 mmol/L 21-29 = 388) BASE EXCESS ARTERIAL (BEAKER) -4.3 mmol/L -2.0-3.0 L (test code = 387) PATIENT TEMPERATURE (BEAKER) 35.8 C (test code = 1818) FIO2 (BEAKER) (test code = 1819) 95.0 % GLUCOSE-STAT [id number] 12:55:00 Test Item Value Reference Range Interpretation Comments GLUCOSE RANDOM (BEAKER) (test code 186 mg/dL 70-110 H = 652) HGB/HCT (H&H) - STAT [id number] 12:55:00 Test Item Value Reference Range Interpretation Comments HEMOGLOBIN (BEAKER) (test code = 9.5 g/dL 13.0-16.8 L 410) HEMATOCRIT (BEAKER) (test code = 28.0 % 40.0-50.0 L 411) CALCIUM, [id number] 12:55:00 Test Item Value Reference Range Interpretation Comments CALCIUM IONIZED (BEAKER) (test 1.02 mmol/L 1.12-1.27 L code = 698) PH, BLOOD (BEAKER) (test code = 7.34 1810) SODIUM NA-STAT [id number] 12:54:00 Test Item Value Reference Range Interpretation Comments SODIUM (BEAKER) (test code = 381) 138 meq/L 135-148 POTASSIUM-STAT [id number] 12:54:00 Test Item Value Reference Range Interpretation Comments POTASSIUM (BEAKER) (test code = 4.5 meq/L 3.6-5.5 379) BLOOD GAS, [id number] 12:28:00 Test Item Value Reference Range Interpretation Comments PH ARTERIAL (BEAKER) (test code = 7.41 7.35-7.45 383) PCO2 ARTERIAL (BEAKER) (test code 33 mmHg 35-45 L = 384) PO2 ARTERIAL (BEAKER) (test code 195 mmHg 80-90 H = 385) O2 SATURATION ARTERIAL (BEAKER) 99.4 % 96.0-97.0 H (test code = 386) HCO3 ARTERIAL (BEAKER) (test code 21 mmol/L 21-29 = 388) BASE EXCESS ARTERIAL (BEAKER) -3.9 mmol/L -2.0-3.0 L (test code = 387) PATIENT TEMPERATURE (BEAKER) 34.7 C (test code = 1818) FIO2 (BEAKER) (test code = 1819) 70.0 % POTASSIUM-STAT [id number] 12:28:00 Test Item Value Reference Range Interpretation Comments POTASSIUM (BEAKER) (test code = 5.8 meq/L 3.6-5.5 H 379) GLUCOSE-STAT [id number] 12:28:00 Test Item Value Reference Range Interpretation Comments GLUCOSE RANDOM (BEAKER) (test code 217 mg/dL 70-110 H = 652) HGB/HCT (H&H) - STAT [id number] 12:28:00 Test Item Value Reference Range Interpretation Comments HEMOGLOBIN (BEAKER) (test code = 8.9 g/dL 13.0-16.8 L 410) HEMATOCRIT (BEAKER) (test code = 26.0 % 40.0-50.0 L 411) SODIUM NA-STAT [id number] 12:27:00 Test Item Value Reference Range Interpretation Comments SODIUM (BEAKER) (test code = 381) 135 meq/L 135-148 POTASSIUM-STAT [id number] 11:58:00 Test Item Value Reference Range Interpretation Comments POTASSIUM (BEAKER) (test code = 7.2 meq/L 3.6-5.5 HH 379) BLOOD GAS, [id number] 11:58:00 Test Item Value Reference Range Interpretation Comments PH ARTERIAL (BEAKER) (test code = 7.39 7.35-7.45 383) PCO2 ARTERIAL (BEAKER) (test code 41 mmHg 35-45 = 384) PO2 ARTERIAL (BEAKER) (test code 226 mmHg 80-90 H = 385) O2 SATURATION ARTERIAL (BEAKER) 99.5 % 96.0-97.0 H (test code = 386) HCO3 ARTERIAL (BEAKER) (test code 25 mmol/L 21-29 = 388) BASE EXCESS ARTERIAL (BEAKER) -0.7 mmol/L -2.0-3.0 (test code = 387) PATIENT TEMPERATURE (BEAKER) 34.2 C (test code = 1818) FIO2 (BEAKER) (test code = 1819) 60.0 % SODIUM NA-STAT [id number] 11:58:00 Test Item Value Reference Range Interpretation Comments SODIUM (BEAKER) (test code = 381) 132 meq/L 135-148 L GLUCOSE-STAT [id number] 11:58:00 Test Item Value Reference Range Interpretation Comments GLUCOSE RANDOM (BEAKER) (test code 259 mg/dL 70-110 H = 652) HGB/HCT (H&H) - STAT [id number] 11:58:00 Test Item Value Reference Range Interpretation Comments HEMOGLOBIN (BEAKER) (test code = 9.9 g/dL 13.0-16.8 L 410) HEMATOCRIT (BEAKER) (test code = 29.0 % 40.0-50.0 L 411) POTASSIUM-STAT [id number] 11:26:00 Test Item Value Reference Range Interpretation Comments POTASSIUM (BEAKER) 6.9 meq/L 3.6-5.5 HH Sample is not (test code = 379) hemolyzed. BLOOD GAS, [id number] 11:25:00 Test Item Value Reference Range Interpretation Comments PH ARTERIAL (BEAKER) (test code = 7.37 7.35-7.45 383) PCO2 ARTERIAL (BEAKER) (test code 36 mmHg 35-45 = 384) PO2 ARTERIAL (BEAKER) (test code 228 mmHg 80-90 H = 385) O2 SATURATION ARTERIAL (BEAKER) 99.5 % 96.0-97.0 H (test code = 386) HCO3 ARTERIAL (BEAKER) (test code 21 mmol/L 21-29 = 388) BASE EXCESS ARTERIAL (BEAKER) -5.0 mmol/L -2.0-3.0 L (test code = 387) PATIENT TEMPERATURE (BEAKER) 31.9 C (test code = 1818) FIO2 (BEAKER) (test code = 1819) 60.0 % SODIUM NA-STAT [id number] 11:25:00 Test Item Value Reference Range Interpretation Comments SODIUM (BEAKER) (test code = 381) 133 meq/L 135-148 L GLUCOSE-STAT [id number] 11:25:00 Test Item Value Reference Range Interpretation Comments GLUCOSE RANDOM (BEAKER) (test code 231 mg/dL 70-110 H = 652) HGB/HCT (H&H) - STAT [id number] 11:25:00 Test Item Value Reference Range Interpretation Comments HEMOGLOBIN (BEAKER) (test code = 10.6 g/dL 13.0-16.8 L 410) HEMATOCRIT (BEAKER) (test code = 31.0 % 40.0-50.0 L 411) HGB/HCT (H&H) - STAT [id number] 10:57:00 Test Item Value Reference Range Interpretation Comments HEMOGLOBIN (BEAKER) (test code = 10.2 g/dL 13.0-16.8 L 410) HEMATOCRIT (BEAKER) (test code = 30.0 % 40.0-50.0 L 411) POTASSIUM-STAT [id number] 10:55:00 Test Item Value Reference Range Interpretation Comments POTASSIUM (BEAKER) (test code = 4.3 meq/L 3.6-5.5 379) BLOOD GAS, [id number] 10:55:00 Test Item Value Reference Range Interpretation Comments PH ARTERIAL (BEAKER) (test code = 7.26 7.35-7.45 L 383) PCO2 ARTERIAL (BEAKER) (test code 44 mmHg 35-45 = 384) PO2 ARTERIAL (BEAKER) (test code 336 mmHg 80-90 H = 385) O2 SATURATION ARTERIAL (BEAKER) 99.7 % 96.0-97.0 H (test code = 386) HCO3 ARTERIAL (BEAKER) (test code 20 mmol/L 21-29 L = 388) BASE EXCESS ARTERIAL (BEAKER) -8.0 mmol/L -2.0-3.0 L (test code = 387) PATIENT TEMPERATURE (BEAKER) 33.8 C (test code = 1818) FIO2 (BEAKER) (test code = 1819) 80.0 % SODIUM NA-STAT [id number] 10:55:00 Test Item Value Reference Range Interpretation Comments SODIUM (BEAKER) (test code = 381) 129 meq/L 135-148 L GLUCOSE-STAT [id number] 10:55:00 Test Item Value Reference Range Interpretation Comments GLUCOSE RANDOM (BEAKER) (test code 147 mg/dL 70-110 H = 652) SODIUM NA-STAT [id number] 08:58:00 Test Item Value Reference Range Interpretation Comments SODIUM (BEAKER) (test code = 381) 139 meq/L 135-148 POTASSIUM-STAT [id number] 08:58:00 Test Item Value Reference Range Interpretation Comments POTASSIUM (BEAKER) (test code = 4.1 meq/L 3.6-5.5 379) HGB/HCT (H&H) - STAT [id number] 08:58:00 Test Item Value Reference Range Interpretation Comments HEMOGLOBIN (BEAKER) (test code = 14.6 g/dL 13.0-16.8 410) HEMATOCRIT (BEAKER) (test code = 43.0 % 40.0-50.0 411) BLOOD GAS, [id number] 08:58:00 Test Item Value Reference Range Interpretation Comments PH ARTERIAL (BEAKER) (test code = 7.38 7.35-7.45 383) PCO2 ARTERIAL (BEAKER) (test code 37 mmHg 35-45 = 384) PO2 ARTERIAL (BEAKER) (test code 190 mmHg 80-90 H = 385) O2 SATURATION ARTERIAL (BEAKER) 99.3 % 96.0-97.0 H (test code = 386) HCO3 ARTERIAL (BEAKER) (test code 22 mmol/L 21-29 = 388) BASE EXCESS ARTERIAL (BEAKER) -3.7 mmol/L -2.0-3.0 L (test code = 387) PATIENT TEMPERATURE (BEAKER) 34.8 C (test code = 1818) FIO2 (BEAKER) (test code = 1819) 94.0 % GLUCOSE-STAT [id number] 08:58:00 Test Item Value Reference Range Interpretation Comments GLUCOSE RANDOM (BEAKER) (test code 115 mg/dL 70-110 H = 652) CALCIUM, [id number] 08:58:00 Test Item Value Reference Range Interpretation Comments CALCIUM IONIZED (BEAKER) (test 1.10 mmol/L 1.12-1.27 L code = 698) PH, BLOOD (BEAKER) (test code = 7.38 1810) CBC W/PLT COUNT & AUTO [id number] 07:56:00 Test Item Value Reference Range Interpretation Comments WHITE BLOOD CELL COUNT (BEAKER) 11.1 K/ L 3.5-10.5 H (test code = 775) RED BLOOD CELL COUNT (BEAKER) 4.91 M/ L 4.63-6.08 (test code = 761) HEMOGLOBIN (BEAKER) (test code = 14.9 GM/DL 13.7-17.5 410) HEMATOCRIT (BEAKER) (test code = 42.2 % 40.1-51.0 411) MEAN CORPUSCULAR VOLUME (BEAKER) 85.9 fL 79.0-92.2 (test code = 753) MEAN CORPUSCULAR HEMOGLOBIN 30.3 pg 25.7-32.2 (BEAKER) (test code = 751) MEAN CORPUSCULAR HEMOGLOBIN CONC 35.3 GM/DL 32.3-36.5 (BEAKER) (test code = 752) RED CELL DISTRIBUTION WIDTH 12.9 % 11.6-14.4 (BEAKER) (test code = 412) PLATELET COUNT (BEAKER) (test 338 K/CU MM 150-450 code = 756) MEAN PLATELET VOLUME (BEAKER) 9.1 fL 9.4-12.4 L (test code = 754) NUCLEATED RED BLOOD CELLS 0 /100 WBC 0-0 (BEAKER) (test code = 413) NEUTROPHILS RELATIVE PERCENT 46 % (BEAKER) (test code = 429) LYMPHOCYTES RELATIVE PERCENT 32 % (BEAKER) (test code = 430) MONOCYTES RELATIVE PERCENT 10 % (BEAKER) (test code = 431) EOSINOPHILS RELATIVE PERCENT 9 % (BEAKER) (test code = 432) BASOPHILS RELATIVE PERCENT 1 % (BEAKER) (test code = 437) NEUTROPHILS ABSOLUTE COUNT 5.12 K/ L 1.78-5.38 (BEAKER) (test code = 670) LYMPHOCYTES ABSOLUTE COUNT 3.54 K/ L 1.32-3.57 (BEAKER) (test code = 414) MONOCYTES ABSOLUTE COUNT (BEAKER) 1.13 K/ L 0.30-0.82 H (test code = 415) EOSINOPHILS ABSOLUTE COUNT 1.03 K/ L 0.04-0.54 H (BEAKER) (test code = 416) BASOPHILS ABSOLUTE COUNT (BEAKER) 0.12 K/ L 0.01-0.08 H (test code = 417) IMMATURE GRANULOCYTES-RELATIVE 1 % 0-1 PERCENT (BEAKER) (test code = 2801) [id number] 06:03:00 Test Item Value Reference Range Interpretation Comments MAGNESIUM (BEAKER) (test code = 1.9 mg/dL 1.6-2.6 627) BASIC METABOLIC [id number] 06:03:00 Test Item Value Reference Range Interpretation Comments SODIUM (BEAKER) 138 meq/L 136-145 (test code = 381) POTASSIUM (BEAKER) 3.8 meq/L 3.5-5.1 (test code = 379) CHLORIDE (BEAKER) 106 meq/L 98-107 (test code = 382) CO2 (BEAKER) (test 23 meq/L 22-29 code = 355) BLOOD UREA NITROGEN 12 mg/dL 7-21 (BEAKER) (test code = 354) CREATININE (BEAKER) 0.85 mg/dL 0.57-1.25 (test code = 358) GLUCOSE RANDOM 103 mg/dL 70-105 (BEAKER) (test code = 652) CALCIUM (BEAKER) 9.3 mg/dL 8.4-10.2 (test code = 697) EGFR (BEAKER) (test 101 mL/min/1.73 ESTIM ATED GFR IS code = 1092) sq m NOT ACCURATE CREATININE CLEARANCE IN PREDICTING GLOMERULAR FILTRATION RATE . ESTIMATED GFR I S NOT APPLICABLE FOR DIALYSIS PATIEN TS. [id number] 05:59:00 Test Item Value Reference Range Interpretation Comments PROTIME (BEAKER) (test code = 13.8 seconds 11.7-14.7 759) INR (BEAKER) (test code = 370) 1.1 <=5.9 PARTIAL THROMBOPLASTIN TIME 85.5 seconds 22.5-36.0 H (BEAKER) (test code = 760) RECOMMENDED COUMADIN/WARFARIN INR THERAPY RANGESSTANDARD DOSE: 2.0 - 3.0 Includes: PROPHYLAXIS forvenous thrombosis, systemic embolization; TREATMENT for venous thrombosis and/or pulmonary embolus.HIGH RISK: Target INR is 2.5-3.5 for patients with mechanical heart valves.[id number] 05:59:00 Test Item Value Reference Range Interpretation Comments PARTIAL THROMBOPLASTIN TIME 85.5 seconds 22.5-36.0 H (BEAKER) (test code = 760) [id number] 17:47:00 Test Item Value Reference Range Interpretation Comments PARTIAL THROMBOPLASTIN TIME 71.4 seconds 22.5-36.0 H (BEAKER) (test code = 760) [id number] 10:30:00 Test Item Value Reference Range Interpretation Comments PARTIAL THROMBOPLASTIN TIME 75.6 seconds 22.5-36.0 H (BEAKER) (test code = 760) [id number] 03:11:00 Test Item Value Reference Range Interpretation Comments PARTIAL THROMBOPLASTIN TIME 89.5 seconds 22.5-36.0 H (BEAKER) (test code = 760) [id number] 03:08:00 Test Item Value Reference Range Interpretation Comments MAGNESIUM (BEAKER) (test code = 2.1 mg/dL 1.6-2.6 627) BASIC METABOLIC [id number] 03:08:00 Test Item Value Reference Range Interpretation Comments SODIUM (BEAKER) 138 meq/L 136-145 (test code = 381) POTASSIUM (BEAKER) 3.9 meq/L 3.5-5.1 (test code = 379) CHLORIDE (BEAKER) 108 meq/L 98-107 H (test code = 382) CO2 (BEAKER) (test 22 meq/L 22-29 code = 355) BLOOD UREA NITROGEN 14 mg/dL 7-21 (BEAKER) (test code = 354) CREATININE (BEAKER) 0.99 mg/dL 0.57-1.25 (test code = 358) GLUCOSE RANDOM 114 mg/dL 70-105 H (BEAKER) (test code = 652) CALCIUM (BEAKER) 9.2 mg/dL 8.4-10.2 (test code = 697) EGFR (BEAKER) (test 85 mL/min/1.73 ESTIMA BONNIE GFR IS code = 1092) sq m NOT ACCURATE CREATININE CLEARANCE IN PREDICTING GLOMERULAR FILTRATION RATE . ESTIMATED GFR I S NOT APPLICABLE FOR DIALYSIS PATIEN TS. CBC (HEMOGRAM ONLY)2017-02-25 02:55:00 Test Item Value Reference Range Interpretation Comments WHITE BLOOD CELL COUNT (BEAKER) 11.3 K/ L 3.5-10.5 H (test code = 775) RED BLOOD CELL COUNT (BEAKER) 5.04 M/ L 4.63-6.08 (test code = 761) HEMOGLOBIN (BEAKER) (test code = 15.2 GM/DL 13.7-17.5 410) HEMATOCRIT (BEAKER) (test code = 43.3 % 40.1-51.0 411) MEAN CORPUSCULAR VOLUME (BEAKER) 85.9 fL 79.0-92.2 (test code = 753) MEAN CORPUSCULAR HEMOGLOBIN 30.2 pg 25.7-32.2 (BEAKER) (test code = 751) MEAN CORPUSCULAR HEMOGLOBIN CONC 35.1 GM/DL 32.3-36.5 (BEAKER) (test code = 752) RED CELL DISTRIBUTION WIDTH 13.0 % 11.6-14.4 (BEAKER) (test code = 412) PLATELET COUNT (BEAKER) (test 295 K/CU MM 150-450 code = 756) MEAN PLATELET VOLUME (BEAKER) 9.1 fL 9.4-12.4 L (test code = 754) NUCLEATED RED BLOOD CELLS 0 /100 WBC 0-0 (BEAKER) (test code = 413) [id number] 19:18:00 Test Item Value Reference Range Interpretation Comments PARTIAL THROMBOPLASTIN TIME 63.3 seconds 22.5-36.0 H (BEAKER) (test code = 760) [id number] 12:47:00 Test Item Value Reference Range Interpretation Comments PARTIAL THROMBOPLASTIN TIME 58.1 seconds 22.5-36.0 H (BEAKER) (test code = 760) [id number] 03:15:00 Test Item Value Reference Range Interpretation Comments MAGNESIUM (BEAKER) (test code = 2.1 mg/dL 1.6-2.6 627) BASIC METABOLIC [id number] 03:15:00 Test Item Value Reference Range Interpretation Comments SODIUM (BEAKER) 141 meq/L 136-145 (test code = 381) POTASSIUM (BEAKER) 3.6 meq/L 3.5-5.1 (test code = 379) CHLORIDE (BEAKER) 108 meq/L 98-107 H (test code = 382) CO2 (BEAKER) (test 24 meq/L 22-29 code = 355) BLOOD UREA NITROGEN 12 mg/dL 7-21 (BEAKER) (test code = 354) CREATININE (BEAKER) 0.92 mg/dL 0.57-1.25 (test code = 358) GLUCOSE RANDOM 101 mg/dL 70-105 (BEAKER) (test code = 652) CALCIUM (BEAKER) 9.1 mg/dL 8.4-10.2 (test code = 697) EGFR (BEAKER) (test 92 mL/min/1.73 ESTIMA BONNIE GFR IS code = 1092) sq m NOT ACCURATE CREATININE CLEARANCE IN PREDICTING GLOMERULAR FILTRATION RATE . ESTIMATED GFR I S NOT APPLICABLE FOR DIALYSIS PATIEN TS. [id number] 03:13:00 Test Item Value Reference Range Interpretation Comments PARTIAL THROMBOPLASTIN TIME 63.2 seconds 22.5-36.0 H (BEAKER) (test code = 760) CBC (HEMOGRAM ONLY)2017-02-24 02:59:00 Test Item Value Reference Range Interpretation Comments WHITE BLOOD CELL COUNT (BEAKER) 9.7 K/ L 3.5-10.5 (test code = 775) RED BLOOD CELL COUNT (BEAKER) 5.11 M/ L 4.63-6.08 (test code = 761) HEMOGLOBIN (BEAKER) (test code = 15.0 GM/DL 13.7-17.5 410) HEMATOCRIT (BEAKER) (test code = 43.3 % 40.1-51.0 411) MEAN CORPUSCULAR VOLUME (BEAKER) 84.7 fL 79.0-92.2 (test code = 753) MEAN CORPUSCULAR HEMOGLOBIN 29.4 pg 25.7-32.2 (BEAKER) (test code = 751) MEAN CORPUSCULAR HEMOGLOBIN CONC 34.6 GM/DL 32.3-36.5 (BEAKER) (test code = 752) RED CELL DISTRIBUTION WIDTH 12.8 % 11.6-14.4 (BEAKER) (test code = 412) PLATELET COUNT (BEAKER) (test 284 K/CU MM 150-450 code = 756) MEAN PLATELET VOLUME (BEAKER) 8.9 fL 9.4-12.4 L (test code = 754) NUCLEATED RED BLOOD CELLS 0 /100 WBC 0-0 (BEAKER) (test code = 413) [id number] 20:04:00 Test Item Value Reference Range Interpretation Comments PARTIAL THROMBOPLASTIN TIME 58.2 seconds 22.5-36.0 H (BEAKER) (test code = 760) [id number] 14:01:00 Test Item Value Reference Range Interpretation Comments PARTIAL THROMBOPLASTIN TIME 49.9 seconds 22.5-36.0 H (BEAKER) (test code = 760) [id number] 07:00:00 Test Item Value Reference Range Interpretation Comments MAGNESIUM (BEAKER) 1.9 mg/dL 1.6-2.6 Specimen slightly (test code = 627) hemolyzed BASIC METABOLIC [id number] 07:00:00 Test Item Value Reference Range Interpretation Comments SODIUM (BEAKER) 137 meq/L 136-145 (test code = 381) POTASSIUM (BEAKER) 3.6 meq/L 3.5-5.1 Specimen slightly (test code = 379) hemolyzed CHLORIDE (BEAKER) 107 meq/L 98-107 (test code = 382) CO2 (BEAKER) (test 22 meq/L 22-29 code = 355) BLOOD UREA NITROGEN 10 mg/dL 7-21 (BEAKER) (test code = 354) CREATININE (BEAKER) 0.89 mg/dL 0.57-1.25 Specimen slightly (test code = 358) hemolyzed GLUCOSE RANDOM 94 mg/dL 70-105 (BEAKER) (test code = 652) CALCIUM (BEAKER) 8.4 mg/dL 8.4-10.2 (test code = 697) EGFR (BEAKER) (test 98 mL/min/1.73 ESTIMA BONNIE GFR IS code = 1092) sq m NOT ACCURATE CREATININE CLEARANCE IN PREDICTING GLOMERULAR FILTRATION RATE . ESTIMATED GFR I S NOT APPLICABLE FOR DIALYSIS PATIEN TS. [id number] 06:59:00 Test Item Value Reference Range Interpretation Comments PARTIAL THROMBOPLASTIN TIME 35.9 seconds 22.5-36.0 (BEAKER) (test code = 760) Prior to initiating heparinCBC (HEMOGRAM ONLY)2017-02-23 06:46:00 Test Item Value Reference Range Interpretation Comments WHITE BLOOD CELL COUNT (BEAKER) 10.6 K/ L 3.5-10.5 H (test code = 775) RED BLOOD CELL COUNT (BEAKER) 4.63 M/ L 4.63-6.08 (test code = 761) HEMOGLOBIN (BEAKER) (test code = 13.9 GM/DL 13.7-17.5 410) HEMATOCRIT (BEAKER) (test code = 39.3 % 40.1-51.0 L 411) MEAN CORPUSCULAR VOLUME (BEAKER) 84.9 fL 79.0-92.2 (test code = 753) MEAN CORPUSCULAR HEMOGLOBIN 30.0 pg 25.7-32.2 (BEAKER) (test code = 751) MEAN CORPUSCULAR HEMOGLOBIN CONC 35.4 GM/DL 32.3-36.5 (BEAKER) (test code = 752) RED CELL DISTRIBUTION WIDTH 12.9 % 11.6-14.4 (BEAKER) (test code = 412) PLATELET COUNT (BEAKER) (test 308 K/CU MM 150-450 code = 756) MEAN PLATELET VOLUME (BEAKER) 9.7 fL 9.4-12.4 (test code = 754) NUCLEATED RED BLOOD CELLS 0 /100 WBC 0-0 (BEAKER) (test code = 413) [id number] 21:04:00 Test Item Value Reference Range Interpretation Comments PARTIAL THROMBOPLASTIN TIME 27.5 seconds 22.5-36.0 (BEAKER) (test code = 760) PLATELET AGGREGATION: FUNCTION [id number] 18:10:00 Test Item Value Reference Range Interpretation Comments WEAK ADP 68 % 60-91 RESULT(BEAKER) (test code = 2135) PLATELET FUNCTION 60-100% indicates SCREEN INTERP (AKER) normal platelet (test code = 2173) function [id number] Ivon Sharp MD ([facility]) (test code = (electronic signature) 7587) PLATELET COUNT AGG 276 K/CU MM 150-430 (BEAKER) (test code = 2656) HEMOGLOBIN [id number] 07:39:00 Test Item Value Reference Range Interpretation Comments HEMOGLOBIN A1C (BEAKER) (test code = 5.1 % 4.3-6.1 368) [id number] 05:50:00 Test Item Value Reference Range Interpretation Comments PARTIAL THROMBOPLASTIN TIME 111.3 seconds 22.5-36.0 H (BEAKER) (test code = 760) Prior to initiating heparinTROPONIN [id number] 04:42:00 Test Item Value Reference Range Interpretation Comments TROPONIN I (BEAKER) (test code = 5.03 ng/mL 0.00-0.03 HH 397) Effective 06/19/2014: Reference Range ChangeNew: 0.00-0.03 Previous 0.00- 0.15Troponin I (TnI) levels must be interpreted in the context of the presenting symptoms and the clinical findings. Elevated TnI levels indicate myocardial damage, but are not specific for ischemic heart disease. Elevated TnI levels are seen in patients with other cardiac conditions (including myocarditis and congestive heartfailure), and slight TnI elevations occur in patients with other conditions, including sepsis, renalfailure, acidosis, acute neurological disease, and persistent tachyarrhythmia.PT/[id number] 04:38:00 Test Item Value Reference Range Interpretation Comments PROTIME (BEAKER) (test code = 15.1 seconds 11.7-14.7 H 759) INR (BEAKER) (test code = 370) 1.2 <=5.9 PARTIAL THROMBOPLASTIN TIME > seconds 22.5-36.0 HH (BEAKER) (test code = 760) RECOMMENDED COUMADIN/WARFARIN INR THERAPY RANGESSTANDARD DOSE: 2.0 - 3.0 Includes: PROPHYLAXIS forvenous thrombosis, systemic embolization; TREATMENT for venous thrombosis and/or pulmonary embolus.HIGH RISK: Target INR is 2.5-3.5 for patients with mechanical heart valves.CREATINE KINASE (CK), TOTAL AND MB 2017-02-22 04:36:00 Test Item Value Reference Range Interpretation Comments CREATINE KINASE TOTAL (BEAKER) 376 U/L 29-200 H (test code = 380) CREATINE KINASE-MB (BEAKER) (test 23.3 ng/mL 0.0-6.6 H code = 750) CREATINE KINASE-MB INDEX (BEAKER) 6.2 % (test code = 395) Effective 06/19/2014: CK-MB Reference Range ChangeNew: 0.0-6.6 Previous: 0.0-4.9CK-MB Reference Range:<6.7 Normal6.7-10.0 Borderline>10.0 AbnormalB-TYPE NATRIURETIC FACTOR (BNP)2017-02-22 04:33:00 Test Item Value Reference Range Interpretation Comments B-TYPE NATRIURETIC PEPTIDE (BEAKER) 91 pg/mL 0-100 (test code = 700) LIPID [id number] 04:31:00 Test Item Value Reference Range Interpretation Comments TRIGLYCERIDES (BEAKER) (test code = 348 mg/dL 540) CHOLESTEROL (BEAKER) (test code = 191 mg/dL 631) HDL CHOLESTEROL (BEAKER) (test code 26 mg/dL = 976) LDL CHOLESTEROL CALCULATED (BEAKER) 95 mg/dL (test code = 633) Triglyceride Reference Range: Low Risk <150 Borderline 150-199 High Risk 200-499 Very High Risk >=500Cholesterol Reference Range: Low Risk <200 Borderline 200-239 High Risk >240HDL Cholesterol Reference Range: Low Risk >=60 High Risk <40LDL Cholesterol Reference Range: Optimal <100 Near Optimal 100-129 Borderline 130-159 High 160-189 Very High >=[id number] 04:31:00 Test Item Value Reference Range Interpretation Comments SODIUM (BEAKER) (test code = 381) 137 meq/L 136-145 POTASSIUM (BEAKER) (test code = 3.8 meq/L 3.5-5.1 379) CHLORIDE (BEAKER) (test code = 382) 108 meq/L 98-107 H CO2 (BEAKER) (test code = 355) 21 meq/L 22-29 L HEPATIC FUNCTION [id number] 04:31:00 Test Item Value Reference Range Interpretation Comments TOTAL PROTEIN (BEAKER) (test code = 6.5 gm/dL 6.0-8.3 770) ALBUMIN (BEAKER) (test code = 1145) 3.8 g/dL 3.5-5.0 BILIRUBIN TOTAL (BEAKER) (test code 0.1 mg/dL 0.2-1.2 L = 377) BILIRUBIN DIRECT (BEAKER) (test 0.1 mg/dL 0.1-0.5 code = 706) ALKALINE PHOSPHATASE (BEAKER) (test 74 U/L 40-150 code = 346) AST (SGOT) (BEAKER) (test code = 31 U/L 5-34 353) ALT (SGPT) (BEAKER) (test code = 26 U/L 6-55 347) [id number] 04:31:00 Test Item Value Reference Range Interpretation Comments GLUCOSE RANDOM (BEAKER) (test code 105 mg/dL 70-105 = 652) Effective 06/19/2014: Reference Range Change-Adult onlyNew: 70-105 Previous: 70-110BUN AND [id number] 04:31:00 Test Item Value Reference Range Interpretation Comments BLOOD UREA NITROGEN 11 mg/dL 7-21 (BEAKER) (test code = 354) CREATININE (BEAKER) 0.89 mg/dL 0.57-1.25 (test code = 358) EGFR (BEAKER) (test 96 mL/min/1.73 ESTIMA BONNIE GFR IS code = 1092) sq m NOT ACCURATE CREATININE CLEARANCE IN PREDICTING GLOMERULAR FILTRATION RATE . ESTIMATED GFR I S NOT APPLICABLE FOR DIALYSIS PATIEN [id number] 04:21:00 Test Item Value Reference Range Interpretation Comments ACTIVATED CLOTTING TIME 202 sec TEST ED AT [facility] 6720 (BEAKER) (test code = [place] 441) [address] CBC W/PLT COUNT & AUTO [id number] 04:17:00 Test Item Value Reference Range Interpretation Comments WHITE BLOOD CELL COUNT (BEAKER) 10.0 K/ L 4.0-10.0 (test code = 775) RED BLOOD CELL COUNT (BEAKER) 4.75 M/ L 4.20-5.80 (test code = 761) HEMOGLOBIN (BEAKER) (test code = 15.0 GM/DL 13.0-16.8 410) HEMATOCRIT (BEAKER) (test code = 42.1 % 40.0-50.0 411) MEAN CORPUSCULAR VOLUME (BEAKER) 88.7 fL 82.0-98.0 (test code = 753) MEAN CORPUSCULAR HEMOGLOBIN 31.6 pg 27.0-33.0 (BEAKER) (test code = 751) MEAN CORPUSCULAR HEMOGLOBIN CONC 35.6 GM/DL 32.0-36.0 (BEAKER) (test code = 752) RED CELL DISTRIBUTION WIDTH 13.8 % 10.3-14.2 (BEAKER) (test code = 412) PLATELET COUNT (BEAKER) (test 280 K/CU MM 150-430 code = 756) MEAN PLATELET VOLUME (BEAKER) 6.2 fL 6.5-10.5 L (test code = 754) NUCLEATED RED BLOOD CELLS 0 /100 WBC 0-0 (BEAKER) (test code = 413) NEUTROPHILS RELATIVE PERCENT 66 % (BEAKER) (test code = 429) LYMPHOCYTES RELATIVE PERCENT 23 % (BEAKER) (test code = 430) MONOCYTES RELATIVE PERCENT 6 % (BEAKER) (test code = 431) EOSINOPHILS RELATIVE PERCENT 4 % (BEAKER) (test code = 432) BASOPHILS RELATIVE PERCENT 1 % (BEAKER) (test code = 437) NEUTROPHILS ABSOLUTE COUNT 6.62 K/ L 1.80-8.00 (BEAKER) (test code = 670) LYMPHOCYTES ABSOLUTE COUNT 2.35 K/ L 1.48-4.50 (BEAKER) (test code = 414) MONOCYTES ABSOLUTE COUNT (BEAKER) 0.56 K/ L 0.00-1.30 (test code = 415) EOSINOPHILS ABSOLUTE COUNT 0.41 K/ L 0.00-0.50 (BEAKER) (test code = 416) BASOPHILS ABSOLUTE COUNT (BEAKER) 0.10 K/ L 0.00-0.20 (test code = 417) 0.00CHEM [id number] 06:15:002.1[facility] [id number] 06:15:80667Zcawwbpk HermannCHEM [id number] 06:15:0099[facility]annCHEM [id number] 06:15:0025[facility]annCHEM [id number] 06:15:008.6 [facility] [id number] 06:15:009[facility]annCHEM PANEL 2016-07-29 06:15:000.94[facility]annCHEM [id number] 06:15:72797Prkbkyky HermannCHEM VHXRJ3342-18-79 06:15:003.1[facility]annCHEM [id number] 06:15:21188Emukwjmk HermannCHEM HBGXN1574-74-04 06:15:0016.1[facility] [id number] 06:15:0013.5[facility] WazkveoHQMPBAXKCU9411-53-07 06:15:00 68.9[facility] VjbzdmjNYRXEXYSRI0265-84-79 06:15:0015.6[facility] HermannHEMATOLOGY 2016-07-29 06:15:001.5[facility] ZvhlvwqHUMGVLKZPT3114-69-79 06:15:000.5[facility] MqpwjriYLXXMSJXNY3211-20-82 06:15:001.3[facility] MxznlktQRRLMBTRPN9677-21-37 06:15:000.1[facility] YwdhpztWYMUCOUSOB6646-04-57 06:15:006.8[facility] TDDGJOKLYU6863-74-68 06:15:001.5[facility] FzojuasHLAKVNYUKJ7388-17-93 06:15:000.1 [facility] XuwdqgrMDCEZVJLGO4309-69-58 06:15:001.03[facility] HermannHEMATOLOGY 2016-07-29 06:15:00 Test Item Value Reference Range Interpretation Comments PT (test code = PT) 13.7 s 12.0-14.7 [facility] [id number] 06:15:00 Test Item Value Reference Range Interpretation Comments PTT (test code = PTT) 31.5 s 22.9-35.8 [facility] GnemocmPCGVNLQBMP4025-61-24 06:15:0013.1[facility]annHEMATOLOGY 2016-07-29 06:15:0036.3[facility] CmdvkljONKKNMYVOR0231-67-95 06:15:62289Suppveev NmrdghkBXNQZZPDTE5729-53-57 06:15:006.7[facility] DbqayonLWESGPEFQQ6656-02-88 06:15:0039.9[facility] GobjwlyNQQVVPJXFF5398-49-14 06:15:009.8[facility] LLKMEAJOGW9743-64-56 06:15:004.70[facility] WdweihkNXAIICQGFW5151-40-46 06:15:00 14.5[facility] [id number] 06:15:00 Test Item Value Reference Range Interpretation Comments MCH (test code = MCH) 30.8 pg 27.0-31.0 [facility] [id number] 06:15:0084.8[facility]
[2020-09-07] MEDS ORDERED: CLINDAMYCIN 900MG/D5W 900 MG/50 ML IVPB IV ONE (21:36)
[2020-09-07] MEDS ORDERED: MEPERIDINE HCL 25 MG/ML SYR ONE ×2 (21:36→23:34)
[2020-09-07 22:11] LABS: Absolute Lymphocytes (CBC) 2.1 K/uL (0.7-4.9); Basophils % 0.7 % (0-1.3); Hematocrit 41.7 % (39.6-49.0); Lymphocytes % 16.3 % (15.3-44.8); MPV 7.2 fL (7.6-11.3); RBC Red Blood Cell Count 4.74 M/uL (4.33-5.43)
[2020-09-07 22:22] LABS: Potassium 3.4 mmol/L (3.5-5.1)
--- NOTE | 2020-09-08 00:27 | ER ---
Nurse's Notes [facility] Name: Jose Carlos Sung Age: 39 yrs Sex: Male : 1980 Arrival Date: 09/07/2020 Time: 19:08 Bed 4 Private MD: Diagnosis: Cellulitis of face;Cellulitis and abscess of mouth-right maxillary tooth abscess Presentation: 09/07 19:32 Chief complaint: Patient states: upper R tooth ache, swelling on face R and R jaw iw started yesterday. Coronavirus screen: Client denies travel out of the [place] in the last 14 days. At this time, the client does not indicate any symptoms associated with coronavirus-19. Ebola Screen: Patient negative for fever greater than or equal to 101.5 degrees Fahrenheit, and additional compatible Ebola Virus Disease symptoms Patient denies exposure to infectious person. Patient denies travel to an Ebola-affected area in the 21 days before illness onset. No symptoms or risks identified at this time. Initial Sepsis Screen: Does the patient meet any 2 criteria? No. Patient's initial sepsis screen is negative. Does the patient have a suspected source of infection? No. Patient's initial sepsis screen is negative. Risk Assessment: Do you want to hurt yourself or someone else? Patient reports no desire to harm self or others. Onset of symptoms was September 07, 2020. 19:32 Method Of Arrival: Ambulatory iw 19:32 Acuity: GERARDO 3 iw Triage Assessment: 19:30 EENT: Reports pain. rr5 Historical: - Allergies: 19:35 No Known Allergies; iw - Home Meds: 19:35 None [Active]; iw - PMHx: 19:35 CAD; Myocardial infarction; iw - PSHx: 19:35 CABG; iw - Immunization history:: Flu vaccine is up to date. - Social history:: Smoking status: Patient/guardian denies using tobacco, the patient reports quitting approximately 3 years ago. Screenin:30 Abuse screen: Denies threats or abuse. Denies injuries from another. Nutritional rr5 screening: No deficits noted. Tuberculosis screening: No symptoms or risk factors identified. Fall Risk IV access (20 points). Total Ramos Fall Scale indicates No Risk (0-24 pts). Assessment: 21:00 General: Appears in no apparent distress. uncomfortable, Behavior is calm, cooperative, rr5 appropriate for age. 21:00 Pain: Complains of pain in face and right cheek Pain currently is 10 out of 10 on a rr5 pain scale. Quality of pain is described as aching, Pain began gradually, Is intermittent. Neuro: Level of Consciousness is awake, alert, obeys commands, Oriented to person, place, time, situation. Cardiovascular: Capillary refill < 3 seconds Patient's skin is warm and dry. Respiratory: Airway is patent Respiratory effort is even, unlabored, Respiratory pattern is regular, symmetrical. GI: No signs and/or symptoms were reported involving the gastrointestinal system. : No signs and/or symptoms were reported regarding the genitourinary system. EENT: swelling right face. Derm: Skin is intact, is healthy with good turgor, Skin temperature is warm. Musculoskeletal: Circulation, motion, and sensation intact. Capillary refill < 3 seconds. 22:00 Reassessment: Patient appears in no apparent distress at this time. Patient and/or rr5 family updated on plan of care and expected duration. Pain level reassessed. Patient is alert, oriented x 3, equal unlabored respirations, skin warm/dry/pink. 22:58 Reassessment: Patient appears in no apparent distress at this time. Patient is alert, rr5 oriented x 3, equal unlabored respirations, skin warm/dry/pink. for ct PE angio. 23:24 Reassessment: back from CT scan complaints of pain on the face. ED provider aware with rr5 order made and carried out. 09/08 01:00 Reassessment: Patient appears in no apparent distress at this time. Patient is alert, rr5 oriented x 3, equal unlabored respirations, skin warm/dry/pink. awaiting for accepting facility. 01:39 Reassessment: Patient and/or family updated on plan of care and expected duration. Pain ea level reassessed. Patient is alert, oriented x 3, equal unlabored respirations, skin warm/dry/pink. 02:42 Reassessment: Patient appears in no apparent distress at this time. Patient is alert, rr5 oriented x 3, equal unlabored respirations, skin warm/dry/pink. awaiting for other facility acceptance. 03:30 Reassessment: Patient and/or family updated on plan of care and expected duration. Pain ea level reassessed. Patient is alert, oriented x 3, equal unlabored respirations, skin warm/dry/pink. Report called to [facility] ED. Awaiting on EMS. 04:50 Reassessment: Patient and/or family updated on plan of care and expected duration. Pain ea level reassessed. Pt resting with eyes closed, respirations even and unlabored. Awaiting on EMS for transport. 06:57 Reassessment: Patient appears in no apparent distress at this time. Patient is alert, rr5 oriented x 3, equal unlabored respirations, skin warm/dry/pink. report given to [facility] awake alert not in distress GCS 15/15. Assessment: 09/07 22:59 Reassessment: Pt taken to CT. ea Vital Signs: 19:32 BP 169 / 100; Pulse 81; Resp 16 S; Temp 97.2(TE); Pulse Ox 100% on R/A; Weight 81.65 kg iw (R); Height 5 ft. 9 in. (175.26 cm) (R); Pain 10/10; 22:30 BP 161 / 85; Pulse 90; Resp 17; Pulse Ox 99% ; rr5 23:20 BP 158 / 98; Pulse 94; Resp 16; Pulse Ox 99% ; Pain 10/10; rr5 02/07 01:40 BP 132 / 77; Pulse 72; Resp 18; Pulse Ox 99% on R/A; ea 02:41 BP 142 / 84; Pulse 69; Resp 19; Pulse Ox 99% ; rr5 04:00 BP 119 / 75; Pulse 70; Resp 19; Pulse Ox 99% ; rr5 05:14 BP 130 / 82; Pulse 70; Resp 18; Pulse Ox 99% ; ea 06:30 BP 135 / 68; Pulse 75; Resp 16; Pulse Ox 98% ; rr5 09/07 19:32 Body Mass Index 26.58 (81.65 kg, 175.26 cm) iw ED Course: 09/07 19:08 Patient arrived in ED. am4 19:34 Triage completed. iw 19:35 Arm band placed on right wrist. iw 21:01 Austyn Cuba RN is Primary Nurse. rr5 21:07 Michael Antoine PA is PHCP. cp 21:07 Nate Nettles MD is Attending Physician. cp 21:30 Patient has correct armband on for positive identification. Placed in gown. Bed in low rr5 position. Call light in reach. Side rails up X2. surveillance monitor on. Pulse ox on. NIBP on. 21:55 Inserted saline lock: 18 gauge in left forearm, using aseptic technique. Blood rr5 collected. 21:55 First set of blood cultures drawn by me. rr5 23:17 CT Facial Bones W/ Con \T\ Mpr In Process Unspecified. EDMS 09/08 00:40 Initiated transfer at [facility] with Kelly Aliza. Stated she would make a few tt3 calls and call back. 01:06 Kelly Aliza called back and stated that the request to transfer was denied due to tt3 being at capacity at the [facility] and that that's the only campus that has the services the pt needs. 01:09 Initiated transfer at [facility] with Sarai. Stated she would call back. tt3 01:35 Sarai called back with their physician to speak with REEMA Fernández, provider of the pt tt3 regarding the transfer request. Call was connected back to me after REEMA Fernández did the consult. Sarai stated she could not give admin approval until the pts covid test resulted. Requested that the face sheet be faxed to [phone]. 01:37 No provider procedures requiring assistance completed. Patient transferred, IV remains ea in place. 03:47 Updated Johanny Wharton on the pt covid test result. She gave admin approval. The tt3 accepting physician is Dr. Kessler. The pt is going to the [facility]. Nurse to call report to . Administered Medications: 09/07 22:00 Drug: Demerol 25 mg {Note: rass 0.} Route: IVP; Site: left forearm; rr5 23:20 Follow up: Response: No adverse reaction; Pain is unchanged, physician notified; RASS: rr5 Alert and Calm (0) 22:04 Drug: Clindamycin 900 mg Route: IVPB; Infused Over: 30 mins; Site: left forearm; rr5 22:30 Follow up: Response: No adverse reaction; IV Status: Completed infusion; IV Intake: 75vpvs5 23:24 Drug: Demerol 25 mg {Note: rass 0.} Route: IVP; Site: left forearm; rr5 09/08 00:24 Follow up: Response: No adverse reaction; Pain is decreased; RASS: Alert and Calm (0) rr5 01:42 Not Given (Other Intervention Used): Demerol 25 mg IVP once; RASS on ADMIN: Combtv4, ea Very Agttd3, Agttd2, Rstlss1, AlertClm0, Drwsy-1, Lt Sdtn-2, Mod Sdtn-3, Dp Sdtn-4, UnArsble-5 01:47 Drug: TORadol - Ketorolac 15 mg Route: IVP; Site: left antecubital; ea 03:00 Follow up: Response: No adverse reaction rr5 01:47 Not Given (Duplicate Order): TORadol - Ketorolac 15 mg IVP once ea 01:48 Drug: Potassium Effervescent Tablet 25 mEq Route: PO; ea 02:40 Follow up: Response: No adverse reaction rr5 Intake: 09/07 22:30 IV: 50ml; Total: 50ml. rr5 Outcome: 09/08 00:27 ER care complete, transfer ordered by MD. cp 01:38 Instructed on the need for transfer, Demonstrated understanding of instructions. ea 06:57 Transferred by ground EMS Transfer form completed. rr5 06:57 Condition: stable 06:58 Patient left the ED. rr5 Signatures: Dispatcher [employer] Yolette Arevalo RN Michael Barksdale PA PA cp Antunez, Elena RN Austyn Alvarez ea, RN RN rr5 Luis Alberto Archuleta3 Vilma Savage
--- NOTE | 2020-09-08 00:27 | EDPHYS ---
Physician Documentation [facility] Name: Jose Carlos Sung Age: 39 yrs Sex: Male : 1980 Arrival Date: 09/07/2020 Time: 19:08 Bed 4 Private MD: ED Physician Nate Nettles HPI: 09/07 21:15 This 39 yrs old Male presents to ER via Ambulatory with complaints of cp Toothache. 21:15 The patient presents with pain. The problem is located in the right upper tooth. Onset: cp The symptoms/episode began/occurred yesterday, and became worse today. Duration: The symptoms are continuous, and are steadily getting worse. Associated signs and symptoms: Pertinent positives: right side facial cheek swelling, Pertinent negatives: chills, fever. Historical: - Allergies: 19:35 No Known Allergies; iw - Home Meds: 19:35 None [Active]; iw - PMHx: 19:35 CAD; Myocardial infarction; iw - PSHx: 19:35 CABG; iw - Immunization history:: Flu vaccine is up to date. - Social history:: Smoking status: Patient/guardian denies using tobacco, the patient reports quitting approximately 3 years ago. ROS: 21:20 Constitutional: Negative for body aches, chills, fever, poor PO intake. cp 21:20 Eyes: Negative for injury, pain, redness, and discharge. cp 21:20 ENT: Positive for dental pain, Negative for ear pain, sore throat, difficulty swallowing, difficulty handling secretions. 21:20 Cardiovascular: Negative for chest pain. 21:20 Respiratory: Negative for cough, shortness of breath, wheezing. 21:20 Abdomen/GI: Negative for abdominal pain, nausea, vomiting, and diarrhea. 21:20 Skin: Positive for swelling, of the right facial cheek. 21:20 Neuro: Negative for altered mental status, headache, weakness. 21:20 All other systems are negative. Exam: 21:25 Constitutional: The patient appears in no acute distress, alert, awake, cp non-diaphoretic, non-toxic, well developed, well nourished. 21:25 Head/face: Noted is swelling, that is moderate, of the right cheek and right zygomatic cp area, tenderness, that is moderate, of the right cheek and right zygomatic area. 21:25 Eyes: Periorbital structures: appear normal, Pupils: equal, round, and reactive to light and accomodation, Extraocular movements: intact throughout, Conjunctiva: normal, no exudate, no injection, Sclera: no appreciated abnormality, Lids and lashes: appear normal, bilaterally. 21:25 ENT: External ear(s): are unremarkable, Ear canal(s): are normal, clear, TM's: dullness, bilaterally, Nose: is normal, Mouth: Lips: moist, Oral mucosa: moist, Posterior pharynx: Airway: no evidence of obstruction, patent, swelling, is not appreciated, erythema, is not appreciated, exudate, is not appreciated, Dental exam: abscess, is not appreciated, dental caries, that is severe, diffusely, pain, that is moderate, specifically in the upper right first molar (#3) and upper right second bicuspid (#4), Voice: is normal. 21:25 Neck: ROM/movement: is normal, is supple, without pain, no range of motions limitations, no meningismus. 21:25 Chest/axilla: Inspection: normal, Palpation: is normal, no crepitus, no tenderness. 21:25 Cardiovascular: Rate: normal, Rhythm: regular, Heart sounds: murmur, not appreciated. 21:25 Respiratory: the patient does not display signs of respiratory distress, Respirations: normal, no use of accessory muscles, no retractions, labored breathing, is not present, Breath sounds: are clear throughout, no decreased breath sounds, no stridor, no wheezing. 21:25 Abdomen/GI: Exam negative for discomfort, distension, guarding, Inspection: abdomen appears normal. Vital Signs: 19:32 BP 169 / 100; Pulse 81; Resp 16 S; Temp 97.2(TE); Pulse Ox 100% on R/A; Weight 81.65 kg iw (R); Height 5 ft. 9 in. (175.26 cm) (R); Pain 10/10; 22:30 BP 161 / 85; Pulse 90; Resp 17; Pulse Ox 99% ; rr5 23:20 BP 158 / 98; Pulse 94; Resp 16; Pulse Ox 99% ; Pain 10/10; rr5 02/07 01:40 BP 132 / 77; Pulse 72; Resp 18; Pulse Ox 99% on R/A; ea 02:41 BP 142 / 84; Pulse 69; Resp 19; Pulse Ox 99% ; rr5 04:00 BP 119 / 75; Pulse 70; Resp 19; Pulse Ox 99% ; rr5 05:14 BP 130 / 82; Pulse 70; Resp 18; Pulse Ox 99% ; ea 06:30 BP 135 / 68; Pulse 75; Resp 16; Pulse Ox 98% ; rr5 09/07 19:32 Body Mass Index 26.58 (81.65 kg, 175.26 cm) iw MDM: 09/07 21:10 Patient medically screened. cp 22:00 Differential diagnosis: dental caries, dental abscess, pericoronitis, sepsis, cp cellulitis. 09/08 00:30 Data reviewed: vital signs, nurses notes, lab test result(s), radiologic studies, CT cp scan. 00:30 Response to treatment: the patient's symptoms have markedly improved after treatment. cp 09/07 21:12 Order name: CBC with Diff cp 09/07 21:12 Order name: BMP cp 09/07 21:12 Order name: Procalcitonin cp 09/07 21:12 Order name: Lactate; Complete Time: 00:27 cp 09/08 01:38 Interpretation: Within normal limits: LAC 1.6. cp 09/07 21:12 Order name: Blood Culture Adult (2) cp 09/07 21:13 Order name: CBC with Automated Diff; Complete Time: 00:27 EDMS 02 00:27 Interpretation: Normal except: WBC 12.70; MPV 7.2; NEUT A 8.8. cp 09/07 21:12 Order name: CT Facial Bones W/ Con \T\ Mpr cp 09/07 21:13 Order name: Basic Metabolic Panel; Complete Time: 00:27 EDMS 02 01:38 Interpretation: Normal except: K 3.4; CL 115; GLUC 115; GFR 74. cp 09/07 21:13 Order name: Procalcitonin; Complete Time: 00:27 EDMS 09/08 03:24 Order name: SARS-COV-2 RT PCR; Complete Time: 03:55 EDMS 09/07 21:12 Order name: IV; Complete Time: 22:04 cp Administered Medications: 09/07 22:00 Drug: Demerol 25 mg {Note: rass 0.} Route: IVP; Site: left forearm; rr5 23:20 Follow up: Response: No adverse reaction; Pain is unchanged, physician notified; RASS: rr5 Alert and Calm (0) 22:04 Drug: Clindamycin 900 mg Route: IVPB; Infused Over: 30 mins; Site: left forearm; rr5 22:30 Follow up: Response: No adverse reaction; IV Status: Completed infusion; IV Intake: 99rhih9 23:24 Drug: Demerol 25 mg {Note: rass 0.} Route: IVP; Site: left forearm; rr5 09/08 00:24 Follow up: Response: No adverse reaction; Pain is decreased; RASS: Alert and Calm (0) rr5 01:42 Not Given (Other Intervention Used): Demerol 25 mg IVP once; RASS on ADMIN: Combtv4, ea Very Agttd3, Agttd2, Rstlss1, AlertClm0, Drwsy-1, Lt Sdtn-2, Mod Sdtn-3, Dp Sdtn-4, UnArsble-5 01:47 Drug: TORadol - Ketorolac 15 mg Route: IVP; Site: left antecubital; ea 03:00 Follow up: Response: No adverse reaction rr5 01:47 Not Given (Duplicate Order): TORadol - Ketorolac 15 mg IVP once ea 01:48 Drug: Potassium Effervescent Tablet 25 mEq Route: PO; ea 02:40 Follow up: Response: No adverse reaction rr5 Disposition: 02:00 Chart complete. 09/09 05:12 Co-signature as Attending Physician, Nate Nettles MD. 7 Disposition: 09/08/20 00:27 Transfer ordered to [facility]System. Diagnosis are Cellulitis of face, Cellulitis and abscess of mouth - right maxillary tooth abscess. - Reason for transfer: Higher level of care. - Accepting physician is Doctor. - Condition is Stable. - Problem is new. - Symptoms have improved. Signatures: Dispatcher [employer] Yolette Arevalo RN RN iw Page, Corey, PA PA cp Antunez, Elena, RN RN ea Roque, Raymond, RN RN rr5 Nate Nettles MD MD 7 Corrections: (The following items were deleted from the chart) 09/08 02:29 01:18 CORONAVIRUS+MR.LAB.BRZ ordered. [facility] 06:58 00:27 09/08/2020 00:27 Transfer ordered to [facility]. Diagnosis is Cellulitis of rr5 face; Cellulitis and abscess of mouth - right maxillary tooth abscess. Reason for transfer: Higher level of care. Accepting physician is Doctor. Condition is Stable. Problem is new. Symptoms have improved. cp
[2020-09-08] MEDS ORDERED: POTASSIUM 25 MEQ EFFERV TAB ONE (02:01)
[2020-09-08] MEDS ORDERED: KETOROLAC 30 MG/ML INJ ONE (02:01)
[2020-09-08 07:05] VITALS: TEMP 97.2
[2020-09-08 07:13] VITALS: BP 135/68; O2SAT 98
--- NOTE | 2020-09-09 11:52 | RAD REPORT ---
EXAM DESCRIPTION: Facial Bones W Con Mpr CLINICAL HISTORY: 39 years,Male,Facial pain;Swelling COMPARISON: None. TECHNIQUE: Contiguous axial images were obtained through the maxillofacial region following IV contr ast. Reformatted images obtained. This exam was performed according to our department optimization program which includes automated exp osure control, adjustment of the mA and/or kv according to patient size and/or use of iterative recon struction technique. FINDINGS: The visualized intracranial structures appear unremarkable. The post septal orbits appear unremarkable. There is dental disease involving multiple teeth. There is lucency around the roots of multiple teeth . There is a bony defect in the right maxillary alveolar ridge adjacent to a right maxillary molar to oth with an adjacent soft tissue abscess collection. The abscess collection measures approximately 1. 3 cm AP by 0.5 cm transverse by 1.3 cm in height. There is soft tissue swelling in the right face, right infraorbital region and in the right neck consistent with cellulitis. There is some phlegmonous tissue adjacent to the right maxillary alveolar ridge. There are slightly prominent right-sided submandibular lymph nodes which are likely reactive. There is mucosal thickening in the right maxillary sinus The parotid glands and submandibular glands appear unremarkable. Old nasal bone fractures. IMPRESSION: There is dental disease involving multiple teeth. There is lucency around the roots of a right maxillary molar tooth with an adjacent alveolar ridge rhiannon ny defect. There is a soft tissue abscess collection adjacent to this bony defect with changes from c ellulitis in the right face. Electronically signed by: Lai Lopes MD 09/07/2020 11:30 PM [employer] Due to temporary technical issues with the PACS/Fluency reporting system, reports are being signed by the in house radiologist without review as a courtesy to ensure prompt reporting. The interpreting r adiologist is fully responsible for the content of the report.
== END 2020-09-08 06:58 | disposition short-term general hospital (02) ==
LOC: ER 19:05
DX: K12.2 Cellulitis and abscess of mouth (principal); K04.7 Periapical abscess without sinus; Z20.822 Contact with and (suspected) exposure to COVID-19; Z95.1 Presence of aortocoronary bypass graft
CPT/HCPCS: 36415; 70487; 76377; 80048; 83605; 84145; 85025; 87040; 99285; J2175; Q9967; U0003

== ENCOUNTER 2023-07-12 21:47 | Emergency (ER) | payer SELFPAY ==
[2023-07-12] MEDS ORDERED: CYCLOBENZAPRINE 10 MG TAB ONE (23:09)
[2023-07-12] MEDS ORDERED: PROMETHAZINE 25 MG TABLET ONE (23:10)
[2023-07-12] MEDS ORDERED: HYDROCODONE/APAP 10/325 TAB ONE (23:10)
[2023-07-12] MEDS ORDERED: KETOROLAC 30 MG/ML INJ ONE (23:10)
--- NOTE | 2023-07-13 00:43 | ER ---
Nurse's Notes [facility] Name: Jose Carlos Sung Age: 42 yrs Sex: Male : 1980 Arrival Date: 07/12/2023 Time: 21:47 Bed 11 Private MD: Diagnosis: Acute right gluteal strain, acute right thigh sprain Presentation: 07/12 21:58 Chief complaint: Patient states: Right hip pain that radiates down right leg onset a cm10 couple months ago. Pt states that the pain has been getting worse. Pt ambulatory with steady gait to triage. Coronavirus screen: Vaccine status: Patient reports receiving the 2nd dose of the covid vaccine. Client denies travel out of the [place] in the last 14 days. Ebola Screen: Patient denies travel to an Ebola-affected area in the 21 days before illness onset. No symptoms or risks identified at this time. Initial Sepsis Screen: Does the patient meet any 2 criteria? No. Patient's initial sepsis screen is negative. Does the patient have a suspected source of infection? No. Patient's initial sepsis screen is negative. Risk Assessment: Do you want to hurt yourself or someone else? Patient reports no desire to harm self or others. Onset of symptoms was July 12, 2023. 21:58 Method Of Arrival: Ambulatory cm10 21:58 Acuity: GERARDO 4 cm10 Historical: - Allergies: 21:59 No Known Allergies; cm10 - PMHx: 21:59 CAD; Myocardial infarction; cm10 - Immunization history:: Adult Immunizations unknown. - Social history:: Smoking status: Patient reports the use of cigarette tobacco products, smokes one pack cigarettes per day. - Family history:: not pertinent. Screenin:22 [facility] ED Fall Risk Assessment (Adult) History of falling in the last 3 months, me1 including since admission No falls in past 3 months (0 pts) Confusion or Disorientation No (0 pts) Intoxicated or Sedated No (0 pts) Impaired Gait No (0 pts) Mobility Assist Device Used No (0 pt) Altered Elimination No (0 pt) Score/Fall Risk Level 0 - 2 = Low Risk Oriented to surroundings, Provided non-skid footwear, Hourly rounding (assess needs \T\ fall precautionary measures) done. Abuse screen: Denies threats or abuse. Nutritional screening: No deficits noted. Tuberculosis screening: No symptoms or risk factors identified. Assessment: 22:22 General: Appears uncomfortable, well groomed, well developed, well nourished, Behavior me1 is calm, cooperative, appropriate for age, Reports Right hip pain that radiates down right leg onset a couple months ago. Pt states that the pain has been getting worse. Pt ambulatory with steady gait to triage. Pain: Complains of pain in right hip Pain radiates to right leg Pain currently is 10 out of 10 on a pain scale. Quality of pain is described as shooting, Pain began couple of months ago. Is continuous. Neuro: Level of Consciousness is awake, alert, obeys commands, Oriented to person, place, time, situation, Appropriate for age. Cardiovascular: Capillary refill < 3 seconds Patient's skin is warm and dry. Respiratory: Airway is patent Respiratory effort is even, unlabored, Respiratory pattern is regular, symmetrical. Musculoskeletal: Reports pain in right hip since couple of months ago.. Pain is 10 out of 10 on a pain scale. 07/13 01:01 Reassessment: Patient appears in no apparent distress at this time. Patient and/or jb4 family updated on plan of care and expected duration. Pain level reassessed. Patient is alert, oriented x 3, equal unlabored respirations, skin warm/dry/pink. Vital Signs: 07/12 21:58 BP 156 / 101; Pulse 76; Resp 16; Temp 98; Pulse Ox 100% ; Weight 83.91 kg; Height 5 ft. cm10 9 in. ; Pain 10/10; 22:51 BP 140 / 85; Pulse 76; Resp 16; Pulse Ox 97% on R/A; me1 23:00 BP 151 / 96; Pulse 75; Resp 17; Pulse Ox 97% on R/A; me1 07/13 01:01 BP 128 / 90; Pulse 72; Resp 16; Pulse Ox 100% on R/A; jb4 07/12 21:58 Body Mass Index 27.32 (83.91 kg, 175.26 cm) cm10 07/12 21:58 Pain Scale: Adult cm10 ED Course: 07/12 21:53 Patient arrived in ED. gm2 21:59 Triage completed. cm10 22:00 Arm band placed on Patient placed in waiting room. cm10 22:11 Delfino Meade MD is Attending Physician. sp4 22:16 Anika Alvarez, RN is Primary Nurse. me1 22:22 Patient has correct armband on for positive identification. Bed in low position. Call me1 light in reach. Side rails up X 1. Provided Education on: POC. Verbalized understanding.. 22:22 No provider procedures requiring assistance completed. me1 23:30 CT Lumbar Spine Wo Con In Process Unspecified. EDMS 23:[address] In Process Unspecified. EDMS 1212 00:29 No apparent distress. Resting quietly. Appears to be sleeping. 00:41 Benigno Esparza DO is Referral Physician. sp4 01:01 Patient did not have IV access during this emergency room visit. jb4 Administered Medications: 07/12 23:02 Drug: Ketorolac IM 60 mg IM once Route: IM; Site: right gluteus; me1 23:30 Follow up: Response: No adverse reaction; Pain is decreased me1 23:02 Drug: Promethazine PO 25 mg PO once Route: PO; me1 23:30 Follow up: Response: No adverse reaction me1 23:02 Drug: Cyclobenzaprine PO 10 mg PO once Route: PO; me1 23:30 Follow up: Response: No adverse reaction; Pain is decreased me1 23:03 Drug: [place] PO 10 mg-325 mg 1 tabs PO once Route: PO; me1 23:31 Follow up: Response: No adverse reaction; Pain is decreased me1 Medication: 22:22 VIS not applicable for this client. me1 Outcome: 1212 00:43 Discharge ordered by . sp4 01:01 Discharged to home ambulatory, jb4 01:01 Condition: stable 01:01 Discharge instructions given to patient, Instructed on discharge instructions, follow up and referral plans. no drinking with medication, no driving heavy equipment, medication usage, Demonstrated understanding of instructions, follow-up care, medications, Prescriptions given X 3, 01:02 Patient left the ED. jb4 Signatures: Dispatcher [employer] Pretty Gonzalez RN RN kl Bryson, James, RN RN jb4 Potepalov, Sergey, MD MD sp4 Ciara Savage RN RN cm10 Anika Alvarez RN RN wi1 Karissa Estrada 2 Corrections: (The following items were deleted from the chart) 12/11 22:22 21:58 Chief complaint: Patient states: Right hip pain that radiates down right leg me1 onset a couple months ago. Pt states that the pain has been getting worse. Pt ambulatory with steady gait to triage. cm10
--- NOTE | 2023-07-13 00:43 | EDPHYS ---
Physician Documentation [facility] Name: Jose Carlos Sung Age: 42 yrs Sex: Male : 1980 Arrival Date: 07/12/2023 Time: 21:47 Bed 11 Private MD: ED Physician Delfino Meade HPI: 07/12 22:11 This 42 yrs old Male presents to ER via Ambulatory with complaints of Hip sp4 Pain, Leg Pain. 22:31 Right hip pain. sp4 07/13 00:45 Patient states he has not developed right buttock right hip pain radiating into the sp4 right thigh starting about 2 months ago at the location of the right iliac crest. Patient states pain is worse when ambulating and now better with rest. 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 . Historical: - Allergies: 07/12 21:59 No Known Allergies; cm10 - PMHx: 21:59 CAD; Myocardial infarction; cm10 - Immunization history:: Adult Immunizations unknown. - Social history:: Smoking status: Patient reports the use of cigarette tobacco products, smokes one pack cigarettes per day. - Family history:: not pertinent. ROS: 07/13 00:45 Constitutional: Negative for fever, chills, and weight loss, sp4 All other systems are negative, Exam: 00:45 Constitutional: This is a well developed, well nourished patient who is awake, alert, sp4 and in no acute distress. Head/Face: Normocephalic, atraumatic. Eyes: Pupils equal round and reactive to light, extra-ocular motions intact. Lids and lashes normal. Conjunctiva and sclera are not injected. Cornea within normal limits. Periorbital areas with no swelling, redness, or edema. ENT: Nares patent. No nasal discharge, no septal abnormalities noted. Tympanic membranes are normal and external auditory canals are clear. Oropharynx with no redness, swelling, or masses, exudates, or evidence of obstruction, uvula midline. Mucous membranes moist. Neck: Trachea midline, no thyromegaly or masses palpated, and no cervical lymphadenopathy. Supple, full range of motion without nuchal rigidity, or vertebral point tenderness. Chest/axilla: Normal chest wall appearance and motion. Nontender with no deformity. No lesions are appreciated. Cardiovascular: Regular rate and rhythm with a normal S1 and S2. No gallops, murmurs, or rubs. Normal PMI, no JVD. No pulse deficits. Respiratory: Lungs have equal breath sounds bilaterally, clear to auscultation and percussion. No rales, rhonchi or wheezes noted. No increased work of breathing, no retractions or nasal flaring. Abdomen/GI: Soft, non-tender, with normal bowel sounds. No distension or tympany. No guarding or rebound. No evidence of tenderness throughout. Back: No spinal tenderness. No costovertebral tenderness. Skin: Warm, dry with normal turgor. Normal color with no rashes, no lesions, and no evidence of cellulitis. MS/ Extremity: Pulses equal, no cyanosis. Neurovascular intact. Full, normal range of motion. Neuro: Awake and alert, GCS 15, oriented to person, place, time, and situation. Cranial nerves II-XII grossly intact. Motor strength 5/5 in all extremities. Sensory grossly intact. Psych: Awake, alert, with orientation to person, place and time. Behavior, mood, and affect are within normal limits Vital Signs: 07/12 21:58 BP 156 / 101; Pulse 76; Resp 16; Temp 98; Pulse Ox 100% ; Weight 83.91 kg; Height 5 ft. cm10 9 in. ; Pain 10; 22:51 BP 140 / 85; Pulse 76; Resp 16; Pulse Ox 97% on R/A; me1 23:00 BP 151 / 96; Pulse 75; Resp 17; Pulse Ox 97% on R/A; me1 07/13 01:01 BP 128 / 90; Pulse 72; Resp 16; Pulse Ox 100% on R/A; jb4 07/12 21:58 Body Mass Index 27.32 (83.91 kg, 175.26 cm) cm10 07/12 21:58 Pain Scale: Adult cm10 MDM: 07/12 22:11 Patient medically screened. sp4 07/13 00:34 ED course: CT - COMPARISON: None Available. TECHNIQUE: CT of the pelvis without IV sp4 contrast. Evaluation of the solid organs and vasculature is suboptimal due to lack of IV contrast. This exam was performed according to our departmental dose-optimization program, which includes automated exposure control, adjustment of the mA and/or kV according to patient size and/or use of iterative reconstruction technique. FINDINGS: Bones:No acute fracture. No destructive bone lesions identified. Soft tissues: There is some subcutaneous fat stranding and foci of gas in the posterior right gluteal region which could be due to injection. No fluid collection. Bladder: Urinary bladder is unremarkable. Bowel: No dilated loops of the visualized large or small bowel. Appendix: Not visualized. Pelvis:No suspicious mass. Other: No free intraperitoneal air. No free fluid or lymphadenopathy. IMPRESSION: 1. No acute osseous abnormality. No advanced degenerative changes. 2. Subcutaneous stranding and foci of air right gluteal region probably due to injection. Correlate with history. - There is a place for total injection of Toradol - no abscess on exam . 00:45 Differential diagnosis: bursitis, arthritis, strain. Data reviewed: vital signs, nurses sp4 notes, radiologic studies, CT scan. Consideration of Admission/Observation Escalation of care including admission/observation considered. ED course: Patient has markedly improved after pain medication. Will advise patient to stay off work for 3 days. Will advise symptomatic medication. No sign of emergent medical problems such as radiculopathy or paralysis, . 07/12 22:42 Order name: CT Lumbar Spine Wo Con sp4 07/12 22:42 Order name: Pelvis Wo Cont CT sp4 Administered Medications: 07/12 23:02 Drug: Ketorolac IM 60 mg IM once Route: IM; Site: right gluteus; me1 23:30 Follow up: Response: No adverse reaction; Pain is decreased me1 23:02 Drug: Promethazine PO 25 mg PO once Route: PO; me1 23:30 Follow up: Response: No adverse reaction me1 23:02 Drug: Cyclobenzaprine PO 10 mg PO once Route: PO; me1 23:30 Follow up: Response: No adverse reaction; Pain is decreased me1 23:03 Drug: [place] PO 10 mg-325 mg 1 tabs PO once Route: PO; me1 23:31 Follow up: Response: No adverse reaction; Pain is decreased me1 Disposition Summary: 07/13/23 00:43 Discharge Ordered Problem: new sp4 Symptoms: have improved sp4 Condition: Stable sp4 Diagnosis - Acute right gluteal strain, acute right thigh sprain sp4 Followup: sp4 - With: Benigno Esparza DO - When: 7 - 10 days - Reason: Recheck today's complaints Discharge Instructions: - Discharge Summary Sheet sp4 - Gluteal Strain sp4 Forms: - Patient Portal Instructions sp4 Prescriptions: - Ibuprofen 800 mg Oral Tablet - take 1 tablet ORAL route every 8 hours As needed take with food; 30 tablet; sp4 Refills: 0, Product Selection Permitted - Cyclobenzaprine 10 mg Oral Tablet - take 1 tablet ORAL route every 8 hours As needed; 30 tablet; Refills: 0, sp4 Product Selection Permitted - Tramadol 50 mg Oral tablet - take 1 tablet ORAL route every 8 hours as needed; 20 tablet; Refills: 0, sp4 Product Selection Permitted Signatures: Dispatcher [employer] Delfino Crooks MD MD sp4 Ciara Savage RN RN cm10 Anika Alvarez RN RN me1
[2023-07-13 01:08] VITALS: TEMP 98
[2023-07-13 01:13] VITALS: BP 128/90; O2SAT 100
--- NOTE | 2023-07-13 13:42 | RAD REPORT ---
EXAM DESCRIPTION: CT PELVIS WITHOUT CONTRAST CLINICAL HISTORY: Right pelvic pain COMPARISON: None Available. TECHNIQUE: CT of the pelvis without IV contrast. Evaluation of the solid organs and vasculature is s uboptimal due to lack of IV contrast. This exam was performed according to our departmental dose-opti mization program, which includes automated exposure control, adjustment of the mA and/or kV according to patient size and/or use of iterative reconstruction technique. FINDINGS: Bones: No acute fracture. No destructive bone lesions identified. Soft tissues: There is some subcutaneous fat stranding and foci of gas in the posterior right gluteal region which could be due to injection. No fluid collection. Bladder: Urinary bladder is unremarkable. Bowel: No dilated loops of the visualized large or small bowel. Appendix: Not visualized. Pelvis: No suspicious mass. Other: No free intraperitoneal air. No free fluid or lymphadenopathy. IMPRESSION: 1. No acute osseous abnormality. No advanced degenerative changes. 2. Subcutaneous stranding and foci of air right gluteal region probably due to injection. Correlate w ith history. 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 The interpreting radiologist is fully responsible for the content of the report.
--- NOTE | 2023-07-13 13:43 | RAD REPORT ---
EXAM DESCRIPTION: CT Lumbar Spine Without Intravenous Contrast CLINICAL HISTORY: Spinal pain TECHNIQUE: Axial computed tomography images of the lumbar spine without intravenous contrast. Sagi ttal and coronal reformatted images were created and reviewed. This CT exam was performed using one or more of the following dose reduction techniques: automated exposure control, adjustment of the mA and/or kV according to patient size, and/or use of iterative reconstruction technique. COMPARISON: No relevant prior studies available. FINDINGS: Vertebrae: There are 5 nonrib-bearing lumbar-type vertebral bodies. No acute fracture or subluxation. Discs/spinal canal/neural foramina: No acute findings. No spinal canal stenosis. Soft tissues: Unremarkable. IMPRESSION: No acute injury. Electronically signed by: Matias Mg MD 07/13/2023 12:03 AM RN OR LPN Due to temporary technical issues with the PACS/Fluency reporting system, reports are being signed by the in house radiologists without review as a courtesy to insure prompt reporting. The interpreting radiologist is fully responsible for the content of the report.
== END 2023-07-13 01:02 | disposition home or self-care (01) ==
LOC: ER 21:47
DX: S76.811A Strain of other specified muscles, fascia and tendons at thigh level, right thigh, initial encounter (principal)
CPT/HCPCS: 72131; 72192; 96372; 99284; Q0169

== ENCOUNTER 2024-12-07 14:19 | Emergency (ER) | payer SELFPAY ==
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
[2024-12-07] MEDS ORDERED: TDAP (DIPHTH,PERTUSS(ACELL),TET VAC) 0.5 ML VIAL IMVAC ONE (14:45)
[2024-12-07 15:22] VITALS: BP 166/95; TEMP 97.8; O2SAT 100
== END 2024-12-07 15:04 | disposition home or self-care (01) ==
LOC: ER 14:19
DX: T22.212A Burn of second degree of left forearm, initial encounter (principal); T20.10XA Burn of first degree of head, face, and neck, unspecified site, initial encounter; T31.0 Burns involving less than 10% of body surface
CPT/HCPCS: 90715; 96372; 99283